=== PATIENT | female | born 1955 | race Caucasian/White ===

== ENCOUNTER 2023-01-17 11:51 | Outpatient (CLI) | payer MEDICARE, BC, SELFPAY | END 2023-01-17 11:52 | disposition home or self-care (01) | LOC: NFLDREF 01-20 09:40 | PROVIDERS: PCP Family Medicine; Referring Provider Family Medicine; Visit Provider Nurse Practitioner Family | DX: R35.0 Frequency of micturition (principal); N30.90 Cystitis, unspecified without hematuria | CPT/HCPCS: 87086; 87186 ==

== ENCOUNTER 2023-04-17 07:56 | Outpatient (CLI) | payer MEDICARE, BC, SELFPAY | END 2023-04-17 07:57 | disposition home or self-care (01) | LOC: NFLDREF 04-26 08:14 | PROVIDERS: PCP Physician Assistant Medical; Visit Provider Physician Assistant Medical | DX: R30.0 Dysuria (principal); N39.0 Urinary tract infection, site not specified; B37.2 Candidiasis of skin and nail; N30.01 Acute cystitis with hematuria | CPT/HCPCS: 87086; 87186 ==

== ENCOUNTER 2023-10-31 13:25 | Outpatient (CLI) | payer MEDICARE, BC, SELFPAY | END 2023-10-31 13:26 | disposition home or self-care (01) | PROVIDERS: PCP Physician Assistant Medical; Visit Provider Emergency Medicine | DX: Z00.00 Encounter for general adult medical examination without abnormal findings (principal); E55.9 Vitamin D deficiency, unspecified; E78.5 Hyperlipidemia, unspecified; Z13.1 Encounter for screening for diabetes mellitus; G25.81 Restless legs syndrome; E61.1 Iron deficiency | CPT/HCPCS: 80053; 80061; 82652; 82728 ==

== ENCOUNTER 2023-11-20 15:11 | Outpatient (CLI) | payer MEDICARE, BC, SELFPAY ==
--- NOTE | 2023-11-20 15:00 | XR_ITS ---
Patient: EDWINA LEYVA Facility:?[facility] Patient ID:?[id number] Site Patient ID:?[id number]. Site :?[id number] Study:?DEXA-Bone Density -11/20/2023 3:56:11 PM Ordering Physician:KRISTI Final Report: DXA BONE MINERAL DENSITY STUDY Reason for exam: Asymptomatic menopausal state. Current height (in): 62. Weight (lb): 160. Menopause age: 56. Ethnicity: White. 1. Have you had a previous hip or vertebral fracture? No. 2. Have you had any fractures during your adult life which did not result from significant trauma (e.g., auto accident)? Yes. 3. Did either of your parents have a hip fracture? No. 4. Do you smoke? No. 5. Have you ever taken Glucocorticoids? No. 6. Do you have rheumatoid arthritis? No. 7. Do you have secondary osteoporosis? No. 8. Do you drink 3 or more alcoholic drinks per day? No. 9. Are you being treated for osteoporosis? Yes. 10. Have you ever taken any of the following medications: Actonel, Evista, Fosamax, Miacalcin, Reclast, Boniva, Forteo, HRT (i.e., estrogen/hormone therapy), Protelos, Prolia, Vitamin D, Calcium, other ? please specify. ANSWER: Yes, vitamin D, calcium, and Meloxicam. 11. Do you have any of the following medical conditions: Anorexia or bulimia, asthma or emphysema, end stage renal disease, hyperparathyroidism, any seizure disorders, cancer, inflammatory bowel diseases, hysterectomy, other ? please specify. ANSWER: No. 12. What was your maximum height (inches)? 65. 13. Do you perform weight bearing exercise regularly? No. 14. Do you regularly consume dairy products? Yes. 15. Do you drink caffeinated beverages? Yes. 16. At what age did your period start? 14. 17. Are you premenopausal? No. 18. How many full-term pregnancies have you had? 3. 19. Have you ever missed your period for more than 6 months in a row (not including or menopause)? No. TECHNIQUE: Bone mineral density study was performed using the [employer]. FINDINGS: The results of the study expressed as bone mineral density (BMD) are as follows: Lumbar spine L1 to L4: BMD: 0.869 g/cm2. T-score: -1.6. Z-score: 0.5 Neck Left: BMD: 0.632 g/cm2. T-score: -2.0. Z-score: -0.1 Right: BMD: 0.612 g/cm2. T-score: -2.1. Z-score: -0.3 Total Left: BMD: 0.818 g/cm2. T-score: -1.0. Z-score: 0.5 Right: BMD: 0.792 g/cm2. T-score: -1.2. Z-score: 0.3 IMPRESSION: Osteopenia. CHINTAN MARROQUIN M.D. JEFFREY:kimberly D& Transcribed: 12:38 p.m. [email or web address]/Dictated by: Chintan Marroquin MD @ 11/21/2023 11:19:00 AM Signed by:Isabel Marroquin MD @11/21/2023 4:15:48 PM (Electronic Signature)
== END 2023-11-20 15:12 | disposition home or self-care (01) ==
LOC: RAD 15:13
PROVIDERS: PCP Physician Assistant Medical; Visit Provider Emergency Medicine
DX: Z78.0 Asymptomatic menopausal state (principal); M85.88 Other specified disorders of bone density and structure, other site; M85.80 Other specified disorders of bone density and structure, unspecified site
CPT/HCPCS: 77080

== ENCOUNTER 2023-12-10 09:15 | Outpatient (CLI) | payer MEDICARE, BC, SELFPAY | END 2023-12-10 09:16 | disposition home or self-care (01) | PROVIDERS: PCP Emergency Medicine; Visit Provider Physician Assistant Medical | DX: M79.671 Pain in right foot (principal); M79.672 Pain in left foot | CPT/HCPCS: 86200; 86431 ==

== ENCOUNTER 2024-06-17 08:26 | Outpatient (CLI) | payer MEDICARE, BC, SELFPAY | END 2024-06-17 08:27 | disposition home or self-care (01) | PROVIDERS: PCP Emergency Medicine; Visit Provider Emergency Medicine | DX: R20.2 Paresthesia of skin (principal); N39.41 Urge incontinence; E78.5 Hyperlipidemia, unspecified | CPT/HCPCS: 82607; 84443; 87086 ==

== ENCOUNTER 2024-10-30 10:36 | Outpatient (CLI) | payer MEDICARE, BC, SELFPAY | END 2024-10-30 10:37 | disposition home or self-care (01) | LOC: NFLDREF 10-31 06:11 | PROVIDERS: PCP Emergency Medicine; Referring Provider Emergency Medicine; Visit Provider Emergency Medicine | DX: I10 Essential (primary) hypertension (principal); M85.80 Other specified disorders of bone density and structure, unspecified site; R20.2 Paresthesia of skin; E78.2 Mixed hyperlipidemia; Z13.21 Encounter for screening for nutritional disorder | CPT/HCPCS: 80048; 80061; 82306; 82607 ==

== ENCOUNTER 2024-11-17 08:00 | Outpatient (RCR) | payer MEDICARE, BC, SELFPAY | END 2024-12-23 09:26 | disposition home or self-care (01) | PROVIDERS: PCP Emergency Medicine; Visit Provider Emergency Medicine | DX: M25.812 Other specified joint disorders, left shoulder (principal); Z51.89 Encounter for other specified aftercare | CPT/HCPCS: 97110; 97140; 97162 ==

== ENCOUNTER 2024-11-24 08:50 | Outpatient (CLI) | payer MEDICARE, BC, SELFPAY ==
--- NOTE | 2024-11-24 10:14 | P.ANES_ITS ---
Anesthesia Charges Start Date/Time Anesthesia Start Date: 11/24/24 Anesthesia Start Time: 09:31 Stop Date/Time Anesthesia Stop Date: 11/24/24 Anesthesia Stop Time: 10:13 Summary Extremes of Age - Over 70 or under 1: BEE RANCHER Coding CPT Codes CPT Codes: JAYDEN LWR INTST NDSC NOS - 75897 ([id number]) P2 - PATIENT W/MILD SYST DISEASE, QK - PET HANDLER 2-4 CNCRNT ANES PROC, QX - BEE RANCHER SVC W/ MD MED DIRECTION Additional Codes: Summary - Extremes of Age - Over 70 or under 1: BEE RANCHER ([id number])
--- NOTE | 2024-11-24 10:14 | W.ANESCHARGE ---
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
--- NOTE | 2024-11-24 11:30 | P.ANES_ITS ---
Anesthesia Charges Start Date/Time Anesthesia Start Date: 11/24/24 Anesthesia Start Time: 09:31 Stop Date/Time Anesthesia Stop Date: 11/24/24 Anesthesia Stop Time: 10:13 Summary Extremes of Age - Over 70 or under 1: MDA Coding CPT Codes CPT Codes: ANES LWR INTST NDSC NOS - 32023 ([id number]) QK - DEVELOPER EVANGELIST 2-4 CNCRNT ANES PROC, QX - SEARCH PLANNER SVC W/ MD MED DIRECTION, P2 - PATIENT W/MILD SYST DISEASE Additional Codes: Summary - Extremes of Age - Over 70 or under 1: MDA ([id number])
== END 2024-11-24 08:51 | disposition home or self-care (01) ==
LOC: OP CLINIC 08:51
PROVIDERS: PCP Emergency Medicine; Visit Provider Surgery
DX: Z12.11 Encounter for screening for malignant neoplasm of colon (principal); D12.2 Benign neoplasm of ascending colon
CPT/HCPCS: 00811; 45385; 88305; 99100; J2704

== ENCOUNTER 2025-01-21 07:39 | Emergency (ER) | payer MEDICARE, BC, SELFPAY ==
--- OUTSIDE RECORDS SUMMARY | 2011-11-22 05:00 | XMS_ITS | Continuity of Care Document ---
Author Organization [facility] Address [address] [address] [place] [address] Phone Care Team Providers Care Communication Equipment Repairer Name Role Phone Azael Zamora MD Unavailable Unavailable Procedures Procedure Date Colonoscopy Flex; Dx (apr) 12 Advance Directives Directive Yes / No Effective Date File Name No Information Encounters Encounter Description Practice Location Reason(s) For Visit Diagnoses Date Provider Providers Copied on Encounter [facility], [address] [address], [place], [place], [id number], tel:[phone] [facility] No Information 2 Noah Addison. [address] [facility] [address], [place], [place], [id number] , [place]. tel:[phone] Referring Provider: Melinda Baez MD E, [address] [facility] [address], [place], [address]. tel:[phone] Family History Family Member Type Diagnosis Age At Onset No Information Payers Payer name Insurance type Covered republican ID Juan M harris(s) V[employer] CI [id number] Social History Type Description Quantity Date Captured Comments Sex Female Smoking Status No Information Chief Complaint And Reason For Visit No Information Reason For Referral Reason For Referral No Information History Of Present Illness Encounter Date Complaint History Of Prese nt Illness No Information Functional Status Date Functional Assessmen t No Information Instructions Date Instruction Additional Infor mation No Information Assessments Type Assessment Date No Information Patient Care Teams Name Effective Dates (start - stop) Status Members No Information
[2025-01-21] VITALS (7 sets, daily range): BP systolic 123–186; BP diastolic 57–95; PULSE 50–68; RESP 12–18; TEMP 36.5; O2SAT 93–100; BMI 26.6
--- OUTSIDE RECORDS SUMMARY | 2025-01-21 07:41 | XMS_ITS ---
Author Name Interface, C1Rcdawyy lity Address [address] [facility] [address] [address] [facility] Address [address] [facility] [address] [address] Care Team Providers Care Enrollment Management Vice President Name Role Phone Nataliia Bravo Unavailable Unavailable Allergies and Adverse Reactions Medication/Group Name Reaction Severity Date No known allergies Plan Date Type Value 03/08/2025 APPOINTMENT OV 30 MIN 03/08/2025 APPOINTMENT LAB 15 MIN 03/02/2024 APPOINTMENT OV 30 MIN 01/21/2023 APPOINTMENT OFFICE FU 30 MIN NO TREATMENT 01/14/2023 APPOINTMENT OUTSIDE TEST 5 M IN 01/22/2022 APPOINTMENT LAB 15 MIN 01/22/2022 APPOINTMENT OV 30 MIN 01/15/2022 APPOINTMENT CARE HOME FOLLOW UP 30 MIN 01/15/2022 APPOINTMENT LAB 15 MIN 01/08/2022 APPOINTMENT OUTSIDE TEST 5 M IN 01/09/2021 APPOINTMENT 1YRRC - 70 ARM/1 YRRC - OK PER CYNDI 01/09/2021 APPOINTMENT 1YRRC - 70 ARM/1 YRRC - OK PER CYNDI 01/03/2021 APPOINTMENT MAMMO - 70 MAMMO CHKIN@ 945AM - FEMALE BREAST CANCER 10/20/2020 APPOINTMENT 1YRRC - 70 ARM/1 YRRC - 70 ARM/1YRRC 01/18/2020 APPOINTMENT 1YRRC - 70 ARM 1 YRRC - PUSH OUT 2-3 MO PER 01/18/2020 APPOINTMENT 1YRRC - 70 ARM 1 YRRC - PUSH OUT 2-3 MO PER 01/09/2021 LABORDER CA 27-29 panel 01/09/2021 LABORDER CBC w/ auto diff 01/09/2021 LABORDER CMP 01/17/2021 LABORDER Mammogram, sada jessy, bilateral breast 01/08/2022 LABORDER Mammogram, scree jessy, bilateral breast 01/22/2022 LABORDER CBC w/ auto diff 01/22/2022 LABORDER CMP 01/14/2023 LABORDER Mammogram, scree jessy, bilateral breast 01/31/2025 LABORDER Mammogram, scree jessy, bilateral breast 03/08/2025 LABORDER CMP 03/08/2025 LABORDER CBC w/ auto diff Reason for Visit OV 30 MIN Encounters Date Name 01/18/2020 Primary malignant ne oplasm of female breast (disorder) Immunizations Date Name Route Dose Instructions Refusal Reason Stat us Flu vaccine - Adult Patient declined/rejected Not Administered Flu vaccine - Adult Patient declined/rejected Not Administered Covid-19 vaccine (Moderna) Completed Covid-19 vaccine (Moderna) Completed Covid-19 vaccine (Moderna) Completed Diagnostic Results Date Type Test Units Lower Limit Upper Limit Result Flag Comments Status Ordered By Specimen Source Lab Address 01/17 CMP Album in g/dL 3.2 5.2 4.3 FINAL Blayne Valencia [address] [id number] 0 Phone: () - 01/17 CMP Alkal ine phosp hatas e U/L 46.0 116.0 58 FINAL Blayne Lopez[address] [id number] 0 Phone: () - 01/17 CMP ALT/S GPT U/L 7.0 40.0 21 FINAL Blayne Lopez[address] [id number] 0 Phone: () - 01/17 CMP AST/S GOT U/L 13.0 40.0 27 FINAL Blayne Lopez[address] [id number] 0 Phone: () - 01/17 CMP BUN mg/dL 9.0 23.0 20 [facility] Blayne Valencia [address] [phone] 0 Phone: () - 01/17 CMP Calci um mg/dL 8.7 10.4 10.1 FINAL Blayne Valencia [place] [address] [place] [phone] 0 Phone: () - 01/17 CMP Chlor tiara mmol/L 96.0 114.0 108 FINAL Blayne Valencia [address] [id number] 0 Phone: () - 01/17 CMP CO2 mmol/L 20.0 31.0 29 FINAL Blayne Valencia [address] [id number] 0 Phone: () - 01/17 CMP Creat inine mg/dL 0.5 1.2 0.67 [facility] Blayne Valencia [address] [phone] 0 Phone: () - 01/17 CMP GFR estim ate ml/min /1.73m ^2 91.3 GFR is calculate d using the CKD-EPI equation. FINAL Blayne Valencia [address] [phone] 0 Phone: () - 01/17 CMP Gluco se mg/dL 73.0 126.0 102 [facility] Blayne Valencia [address] [id number] 0 Phone: () - 01/17 CMP Potas sium mmol/L 3.5 5.1 4.2 ROSELINE Valencia [address] [phone] 0 Phone: () - 01/17 CMP Sodiu m mmol/L 136.0 145.0 144 [facility] Blayne Valencia [address] [phone] 0 Phone: () - 01/17 CMP Bilir ubin, total mg/dL 0.3 1.2 0.6 [facility] Blayne Valencia [address] [phone] 0 Phone: () - 01/17 CMP Total prote in g/dL 5.7 8.2 7.0 [facility] Blayne Valencia [address] [phone] 0 Phone: () - 01/17 CBC w/ auto diff WBC K/uL 3.0 8.9 4.6 FINAL Blayne morales [facility] - [place], [address] 200 [facility] [phone] 0 Phone: () - 01/17 CBC w/ auto diff HGB g/dL 11.3 15.2 12.7 FINAL Blayne morales [facility] - [place], [address] 200 [facility] [id number] 0 Phone: () - 01/17 CBC w/ auto diff PLT K/uL 113.0 364.0 222 FINAL Blayne morales Oncology - [place], [address] 200 [facility] [id number] 0 Phone: () - 01/17 CBC w/ auto diff Irwin # (ANC) K/uL 1.6 6.6 2.7 FINAL Blayne morales [facility] - [place], [address] 200 [facility] [phone] 0 Phone: () - 01/17 CBC w/ auto diff Irwin % % 43.0 74.0 58.7 FINAL Blayne morales [facility] - [place], [address] 200 [facility] [id number] 0 Phone: () - 01/17 CBC w/ auto diff IG % % 0.0 0.5 0.4 FINAL Blayne morales [facility] - [place], [address] 200 [facility] [id number] 0 Phone: () - 01/17 CBC w/ auto diff IG # K/uL 0.0 0.03 0.02 FINAL Blayne morales [facility] - [place], [address] [facility] [place] [phone] 0 Phone: () - 01/17 CBC w/ auto diff LY % % 14.0 41.0 25.2 FINAL Blayne morales [facility] - [place], [address] [facility] [id number] 0 Phone: () - 01/17 CBC w/ auto diff MO % % 6.0 15.0 10.9 FINAL Blayne morales [facility] - [place], [address] [place] [address] [address] [place] [id number] 0 Phone: () - 01/17 CBC w/ auto diff EO % % 0.0 7.0 4.1 FINAL Blayne morales [facility] - [place], [address] [place] [address] [address] [place] [id number] 0 Phone: () - 01/17 CBC w/ auto diff BA % % 0.0 2.0 0.7 FINAL Blayne morales [facility] - [place], [address] [place] [address] [address] [place] [id number] 0 Phone: () - 01/17 CBC w/ auto diff LY # K/uL 0.4 3.6 1.2 FINAL Blayne morales [facility] - [place], [address] [place] [address] [address] [place] [id number] 0 Phone: () - 01/17 CBC w/ auto diff MO # K/uL 0.2 1.3 0.5 FINAL Blayne morales [facility] - [place], [address] [place] [address] [address] [place] [id number] 0 Phone: () - 01/17 CBC w/ auto diff EO # K/uL 0.0 0.6 0.2 FINAL Blayne morales [facility] - [place], [address] [place] [address] [address] [place] [id number] 0 Phone: () - 01/17 CBC w/ auto diff BA # K/uL 0.0 0.2 0.0 FINAL Blayne morales [facility] - [place], [address] [place] [address] [address] [place] [id number] 0 Phone: () - 01/17 CBC w/ auto diff NRBC % #/100W BC 0.0 0.2 0.0 FINAL Blayne morales [facility] - [place], [address] [place] [address] [address] [place] [id number] 0 Phone: () - 01/17 CBC w/ auto diff RBC M/uL 3.9 5.1 4.25 FINAL Blayne morales On[facility] - [place], [address] [place] [id number] 0 Phone: () - 01/17 CBC w/ auto diff HCT % 35.0 48.0 38.8 FINAL [facility], [address] [place] [address] [address] [place] [id number] 0 Phone: () - 01/17 CBC w/ auto diff MCV fL 80.0 104.0 91.3 FINAL [facility]ales [facility], [address] [place] [address] 200 [place] [id number] 0 Phone: () - 01/17 CBC w/ auto diff MCH pg 26.0 35.0 29.9 FINAL Blayne morales [facility], [address] [place] [id number] 0 Phone: () - 01/17 CBC w/ auto diff MCHC g/dL 30.0 35.0 32.7 FINAL Blayne morales Oncology [facility], [address] [place] [id number] 0 Phone: () - 01/17 CBC w/ auto diff MPV fL 9.5 13.4 9.6 FINAL Blayne morales Oncology [facility], [address] [place] [id number] 0 Phone: () - 01/17 CBC w/ auto diff RDW % 11.4 16.1 13.20 FINAL Blayne morales Oncology [facility], [address] 200 [place] [id number] 0 Phone: () - 01/17 CA 27-29 panel CA 27-29 UNITS/ ML 0.0 37.0 15.68 Test performed at [facility] on a [employer] 2000 Immunoass ay Analyzer that uses an immunoenz ymometric sandwich assay for analysis. Patient testing should not be performed using multiple methodsuzan lambert due to analytica l variation seen between test methodsuzan lambert. FINAL Blayne morales Oncology [facility], [address] [facility] [address] [facility] [phone] 0 Phone: () - 10/06 [facility] other lab See extermination supervisor d 01/09 CBC w/ auto diff WBC K/uL 3.0 8.9 6.6 FINAL Nataliia morales Oncology - [place], [address] [place] [address] [address] [place] [id number] 0 Phone: () - 01/09 CBC w/ auto diff HGB g/dL 11.3 15.2 12.9 FINAL Nataliia morales Oncology - [place], [address] [place] [address] [address] [place] [id number] 0 Phone: () - 01/09 CBC w/ auto diff PLT K/uL 113.0 364.0 251 FINAL Nataliia morales [facility] - [place], [address] [place] [address] [address] [place] [id number] 0 Phone: () - 01/09 CBC w/ auto diff Irwin # (ANC) K/uL 1.6 6.6 4.9 FINAL Nataliia morales [facility] - [place], [address] [place] [address] [address] [place] [id number] 0 Phone: () - 01/09 CBC w/ auto diff Irwin % % 43.0 74.0 73.2 FINAL Nataliia morales Oncology - [place], [address] [place] [address] [address] [place] [id number] 0 Phone: () - 01/09 CBC w/ auto diff IG % % 0.0 0.5 0.2 FINAL Nataliia morales [facility] - [place], [address] [place] [address] [address] [place] [id number] 0 Phone: () - 01/09 CBC w/ auto diff IG # K/uL 0.0 0.03 0.01 FINAL Nataliia Hawleyot andrew Oncology - [place], [address] [place] [address] [address] [place] [id number] 0 Phone: () - 01/09 CBC w/ auto diff LY % % 14.0 41.0 15.1 FINAL Nataliia Hawleyot andrew On[facility] - [place], [address] [place] [address] [address] [place] [id number] 0 Phone: () - 01/09 CBC w/ auto diff MO % % 6.0 15.0 8.8 FINAL Nataliia morales [facility]cology - [place], [address] [place] [address] [address] [place] [id number] 0 Phone: () - 01/09 CBC w/ auto diff EO % % 0.0 7.0 2.1 FINAL Nataliia morales [facility] - [place], [address] [place] [id number] 0 Phone: () - 01/09 CBC w/ auto diff BA % % 0.0 2.0 0.6 FINAL Nataliia morales [facility] - [place], [address] [place] [id number] 0 Phone: () - 01/09 CBC w/ auto diff LY # K/uL 0.4 3.6 1.0 FINAL Nataliia morales Oncology - [place], [address] [place] [id number] 0 Phone: () - 01/09 CBC w/ auto diff MO # K/uL 0.2 1.3 0.6 FINAL Nataliia morales On[facility] - [place], [address] [place] [id number] 0 Phone: () - 01/09 CBC w/ auto diff EO # K/uL 0.0 0.6 0.1 FINAL Nataliia morales Oncology - [place], [address] [place] [id number] 0 Phone: () - 01/09 CBC w/ auto diff BA # K/uL 0.0 0.2 0.0 FINAL Nataliia morales Oncology - [place], [address] [place] [id number] 0 Phone: () - 01/09 CBC w/ auto diff NRBC % #/100W BC 0.0 0.2 0.0 FINAL Nataliia morales Oncology - [place], [address] [place] [id number] 0 Phone: () - 01/09 CBC w/ auto diff RBC M/uL 3.9 5.1 4.31 FINAL Nataliia morales Oncology - [place], [address] [facility] [place] [id number] 0 Phone: () - 01/09 CBC w/ auto diff HCT % 35.0 48.0 39.3 FINAL Nataliia morales Oncology - [place], [address] 200 [facility] [place] [id number] 0 Phone: () - 01/09 CBC w/ auto diff MCV fL 80.0 104.0 91.2 FINAL Nataliia morales Oncology - [place], [address] [facility] [place] [id number] 0 Phone: () - 01/09 CBC w/ auto diff MCH pg 26.0 35.0 29.9 FINAL Nataliia morales Oncology - [place], [address] [facility] [place] [id number] 0 Phone: () - 01/09 CBC w/ auto diff MCHC g/dL 30.0 35.0 32.8 FINAL Nataliia morales Oncology - [place], [address] [facility] [place] [id number] 0 Phone: () - 01/09 CBC w/ auto diff MPV fL 9.5 13.4 9.9 FINAL Nataliia morales Oncology - [place], [address] [facility] [place] [id number] 0 Phone: () - 01/09 CBC w/ auto diff RDW % 11.4 16.1 13.10 FINAL Nataliia morales [facility] [place] [facility], [address] 200 [facility] [place] [id number] 0 Phone: () - 01/09 CMP Album in g/dL 3.2 5.2 4.4 FINAL Nataliia morales Oncology [address] [phone] 0 Phone: () - 01/09 CMP Alkal ine phosp hatas e U/L 46.0 116.0 71 FINAL Nataliia morales On[facility] [address] [place] [phone] 0 Phone: () - 01/09 CMP ALT/S GPT U/L 7.0 40.0 23 FINAL Nataliia morales [address] [id number] 0 Phone: () - 01/09 CMP AST/S GOT U/L 13.0 40.0 32 FINAL Nataliia morales [address] [id number] 0 Phone: () - 01/09 CMP BUN mg/dL 9.0 23.0 14 FINAL Nataliia Hawley[address] [id number] 0 Phone: () - 01/09 CMP Calci um mg/dL 8.7 10.4 9.7 FINAL Nataliia Hawley[address] [id number] 0 Phone: () - 01/09 CMP Chlor tiara mmol/L 96.0 114.0 109 FINAL Nataliia Hawley[address] [id number] 0 Phone: () - 01/09 CMP CO2 mmol/L 20.0 31.0 26 FINAL Nataliia Bravo [address] [id number] 0 Phone: () - 01/09 CMP Creat inine mg/dL 0.5 1.2 0.89 FINAL Nataliia Hawley andrew [address] [id number] 0 Phone: () - 01/09 CMP GFR estim ate ml/min /1.73m ^2 66.8 GFR is calculate d using the CKD-EPI equation. FINAL Nataliia Hawley andrew [address] [phone] 0 Phone: () - 01/09 CMP Gluco se mg/dL 73.0 126.0 87 FINAL Nataliia morales [address] [id number] 0 Phone: () - 01/09 CMP Potas sium mmol/L 3.5 5.1 4.1 FINAL Nataliia Hawley[address] [id number] 0 Phone: () - 01/09 CMP Sodiu m mmol/L 136.0 145.0 143 FINAL Nataliia Hawley andrew [address] [id number] 0 Phone: () - 01/09 CMP Bilir ubin, total mg/dL 0.3 1.2 0.5 FINAL Nataliia Hawley[address] [id number] 0 Phone: () - 01/09 CMP Total prote in g/dL 5.7 8.2 7.3 FINAL Nataliia Hawley[address] [phone] 0 Phone: () - 01/09 CA 27-29 panel CA 27-29 UNITS/ ML 0.0 37.0 18.95 Test performed at [facility] on a [employer] Immuno[employer] ay Analyzer that uses an immunoenz ymometric sandwich assay for analysis. Patient testing should not be performed using multiple methodolo gikimberly due to analytica l variation seen between test methodolo fausto. FINAL Nataliia Hawley[address] [phone] 0 Phone: () - 07/19 [facility] other lab See extermination supervisor d 08/14 [facility] other lab See extermination supervisor d 01/22 CMP Album in g/dL 3.2 5.2 4.2 FINAL [place] [address] [id number] 0 Phone: () - 01/22 CMP Alkal ine phosp hatas e U/L 46.0 116.0 68 FINAL Blayne Valencia [place] [address] [id number] 0 Phone: () - 01/22 CMP ALT/S GPT U/L 7.0 40.0 25 FINAL Blayne Valencia [place] [address] [id number] 0 Phone: () - 01/22 CMP AST/S GOT U/L 13.0 40.0 31 [facility] [address] [facility] [id number] 0 Phone: () - 01/22 CMP BUN mg/dL 9.0 23.0 18 [facility] [address] [facility] [id number] 0 Phone: () - 01/22 CMP Calci um mg/dL 8.7 10.4 9.6 [facility] [address] [facility] [id number] 0 Phone: () - 01/22 CMP Chlor tiara mmol/L 96.0 114.0 110 [facility] [address] [id number] 0 Phone: () - 01/22 CMP CO2 mmol/L 20.0 31.0 23 The expected total allowable error for CO2 is 5.6%. We have seen up to 10% differenc e in values if reported at the end of the 96 hour stability window. Please consider the clinical significa nce of a 2.0-2.5 mmol/L lower reported CO2 value if reported at the end of the 96 hour stability window. [facility], [address] [facility] [address] [place] [address] [phone] 0 Phone: () - 01/22 CMP Creat inine mg/dL 0.5 1.2 0.76 [facility], [address] [place] [address] [id number] 0 Phone: () - 01/22 CMP GFR estim ate ml/min /1.73m ^2 85.0 GFR is calculate d using the CKD-EPI equation. [facility], [address] [place] [address] [phone] 0 Phone: () - 01/22 CMP Gluco se mg/dL 73.0 126.0 95 FINAL Blayne morales [facility], [address] [facility] [id number] 0 Phone: () - 01/22 CMP Potas sium mmol/L 3.5 5.1 3.9 FINAL Blayne morales [facility], [address] [facility] [id number] 0 Phone: () - 01/22 CMP Sodiu m mmol/L 136.0 145.0 144 FINAL Blayne [facility], [address] [facility] [id number] 0 Phone: () - 01/22 CMP Bilir ubin, total mg/dL 0.3 1.2 0.7 FINAL Blayne morales [facility], [address] [facility] [id number] 0 Phone: () - 01/22 CMP Total prote in g/dL 5.7 8.2 7.0 FINAL Blayne morales [facility], [address] [facility] [id number] 0 Phone: () - 01/22 CBC w/ auto diff WBC K/uL 3.0 8.9 4.2 FINAL Blayne morales [facility], [address] [place] [address] 200 [facility] [place] [id number] 0 Phone: () - 01/22 CBC w/ auto diff HGB g/dL 11.3 15.2 12.4 FINAL Blayne morales [facility], [address] [place] [address] [address] [facility] [place] [id number] 0 Phone: () - 01/22 CBC w/ auto diff PLT K/uL 113.0 364.0 252 FINAL Blayne Hawley andrew [facility], [address] [place] [address] [address] [facility] [place] [id number] 0 Phone: () - 01/22 CBC w/ auto diff Irwin # (ANC) K/uL 1.6 6.6 2.1 FINAL Blayne morales Oncology [facility], [address] [place] [address] [address] [facility] [place] [id number] 0 Phone: () - 01/22 CBC w/ auto diff Irwin % % 43.0 74.0 51.5 FINAL Blayne morales [facility] - [place], [address] [place] [address] [address] [place] [id number] 0 Phone: () - 01/22 CBC w/ auto diff IG % % 0.0 0.5 0.2 FINAL Blayne morales [facility] - [place], [address] [place] [address] [address] [place] [id number] 0 Phone: () - 01/22 CBC w/ auto diff IG # K/uL 0.0 0.03 0.01 FINAL Blayne morales [facility] - [place], [address] [place] [address] [address] [place] [id number] 0 Phone: () - 01/22 CBC w/ auto diff LY % % 14.0 41.0 29.3 FINAL Blayne morales [facility] - [place], [address] [place] [address] [address] [place] [id number] 0 Phone: () - 01/22 CBC w/ auto diff MO % % 6.0 15.0 10.8 FINAL Blayne morales [facility] - [place], [address] [place] [address] [address] [place] [id number] 0 Phone: () - 01/22 CBC w/ auto diff EO % % 0.0 7.0 7.2 High FINAL Blayne morales [facility] - [place], [address] [place] [address] [address] [place] [id number] 0 Phone: () - 01/22 CBC w/ auto diff BA % % 0.0 2.0 1.0 FINAL Blayne morales [facility] - [place], [address] [place] [address] [address] [place] [id number] 0 Phone: () - 01/22 CBC w/ auto diff LY # K/uL 0.4 3.6 1.2 FINAL Blayne morales [facility] - [place], [address] [place] [address] [address] [place] [id number] 0 Phone: () - 01/22 CBC w/ auto diff MO # K/uL 0.2 1.3 0.5 FINAL Blayne morales [facility] - [place], [address] [place] [address] [address] [place] [id number] 0 Phone: () - 01/22 CBC w/ auto diff EO # K/uL 0.0 0.6 0.3 FINAL Blayne morales [facility] - [place], [address] [place] [address] [address] [place] [id number] 0 Phone: () - 01/22 CBC w/ auto diff BA # K/uL 0.0 0.2 0.0 FINAL Blayne morales [facility] - [place], [address] [place] [address] [address] [place] [id number] 0 Phone: () - 01/22 CBC w/ auto diff NRBC % #/100W BC 0.0 0.2 0.0 FINAL Blayne morales [facility] - [place], [address] [place] [address] [address] [place] [id number] 0 Phone: () - 01/22 CBC w/ auto diff RBC M/uL 3.9 5.1 4.11 FINAL Blayne morales [facility] - [place], [address] [place] [address] [address] [place] [id number] 0 Phone: () - 01/22 CBC w/ auto diff HCT % 35.0 48.0 38.0 FINAL Blayne morales [facility] - [place], [address] [place] [address] [address] [place] [id number] 0 Phone: () - 01/22 CBC w/ auto diff MCV fL 80.0 104.0 92.5 FINAL Blayne morales [facility] - [place], [address] [place] [address] [address] [place] [id number] 0 Phone: () - 01/22 CBC w/ auto diff MCH pg 26.0 35.0 30.2 FINAL Blayne morales [facility] - [place], [address] [place] [address] [address] [place] [id number] 0 Phone: () - 01/22 CBC w/ auto diff MCHC g/dL 30.0 35.0 32.6 FINAL Blayne morales On[facility] - [place], [address] [facility] [id number] 0 Phone: () - 01/22 CBC w/ auto diff MPV fL 9.5 13.4 9.9 FINAL Blayne morales Oncology [facility], [address] [facility] [id number] 0 Phone: () - 01/22 CBC w/ auto diff RDW % 11.4 16.1 13.50 FINAL Blayne morales Oncology [facility], [address] [facility] [phone] 0 Phone: () - Medications Date Name Route Dose Frequency Instructions Start Date End Date Status Pramipexole Oral once daily at night active Meloxicam Oral once daily active Sulfamethoxazol e-Trimethoprim Oral 800 mg-160 mg (DS) until january 23 active 2018 Miscellaneous Drug PO 1.0 CAPSULE(S) QOD 2018 active 2018 Cetirizine Oral PO 1.0 TABLET(S) prn 2018 active 2018 Miscellaneous Drug Topical 1.0 APPLICATION as directed 2018 active 2018 Ibuprofen Oral PO 1.0 TABLET(S) Q8H PRN pain 2018 active 2018 Triamcinolone Topical Cream 0.1 % Topical 1.0 APPLICATION prn 2018 active 2017 Rosuvastatin Calcium Oral PO 1.0 TABLET(S) every other day takes MWF 2017 active Problems Diagnosis Status Date of Diagnosi s Estrogen receptor negative status [ER-] Active Primary malignant neoplasm of female breast (dis order) Active 09/2011 Vital Signs Date Type Value 01/18/2020 Body Temperature 98.10 01/18/2020 Pain Scale 0.00 01/18/2020 Weight 166.80 01/09/2021 Intravascular Systolic 128 01/09/2021 Intravascular Diastolic 74 01/09/2021 Height 65.00 01/09/2021 Weight 176.20 01/09/2021 Pain Scale 0.00 01/09/2021 Respiratory Rate 16.00 01/09/2021 Oxygen Saturation 98.00 01/09/2021 BSA 1.87 01/09/2021 Body Temperature 97.80 01/09/2021 Heart Beat 90.00 01/09/2021 BMI 29.32 01/22/2022 BMI 26.96 01/22/2022 BSA 1.81 01/22/2022 Height 65.00 01/22/2022 Weight 162.00 01/22/2022 Pain Scale 0.00 01/22/2022 Intravascular Systolic 112 01/22/2022 Intravascular Diastolic 68 01/22/2022 Oxygen Saturation 95.00 01/22/2022 Respiratory Rate 16.00 01/22/2022 Heart Beat 84.00 01/22/2022 Body Temperature 98.00 01/21/2023 Intravascular Systolic 152 01/21/2023 Intravascular Diastolic 66 01/21/2023 Oxygen Saturation 98.00 01/21/2023 Respiratory Rate 16.00 01/21/2023 Heart Beat 81.00 01/21/2023 Pain Scale 2.00 01/21/2023 BSA 1.81 01/21/2023 BMI 27.09 01/21/2023 Height 65.00 01/21/2023 Weight 162.80 01/21/2023 Body Temperature 98.00 03/02/2024 BSA 1.81 03/02/2024 BMI 27.06 03/02/2024 Height 65.00 03/02/2024 Weight 162.60 03/02/2024 Pain Scale 3.00 03/02/2024 Intravascular Systolic 140 03/02/2024 Intravascular Diastolic 82 03/02/2024 Oxygen Saturation 95.00 03/02/2024 Respiratory Rate 16.00 03/02/2024 Body Temperature 98.04 03/02/2024 Heart Beat 87.00
--- OUTSIDE RECORDS SUMMARY | 2025-01-21 07:41 | XMS_ITS ---
Author Name Interface, [id number] lity Address [address] [facility] [address] [address] [facility] Address [address] [facility] [address] [address] Care Team Providers Care Deep Submergence Vehicle Operator Name Role Phone Cindy Loco Unavailable Unavailable Allergies and Adverse Reactions Medication/Group Name Reaction Severity Date No known allergies Plan Date Type Value 03/08/2025 APPOINTMENT OV 30 MIN 03/08/2025 APPOINTMENT LAB 15 MIN 03/02/2024 APPOINTMENT OV 30 MIN 01/21/2023 APPOINTMENT OFFICE FU 30 MIN NO TREATMENT 01/14/2023 APPOINTMENT OUTSIDE TEST 5 M IN 01/22/2022 APPOINTMENT LAB 15 MIN 01/22/2022 APPOINTMENT OV 30 MIN 01/22/2022 LABORDER CBC w/ auto diff 01/22/2022 LABORDER CMP 01/14/2023 LABORDER Mammogram, scree jessy, bilateral breast 01/31/2025 LABORDER Mammogram, scree jessy, bilateral breast 03/08/2025 LABORDER CMP 03/08/2025 LABORDER CBC w/ auto diff Reason for Visit OV 30 MIN Encounters Date Name 01/22/2022 Primary malignant ne oplasm of female breast (disorder) Immunizations Date Name Route Dose Instructions Refusal Reason Stat us Flu vaccine - Adult Patient declined/rejected Not Administered Covid-19 vaccine (Moderna) Completed Covid-19 vaccine (Moderna) Completed Covid-19 vaccine (Moderna) Completed Diagnostic Results Date Type Test Units Lower Limit Upper Limit Result Flag Comments Status Ordered By Specimen Source Lab Address 01/22 CMP Album in g/dL 3.2 5.2 4.2 FINAL [facility] [place], [address] [facility] [address] [facility] [id number] [phone] Phone: () - 01/22 CMP Alkal ine phosp hatas e U/L 46.0 116.0 68 [facility], [address] [facility] [phone] 0 Phone: () - 01/22 CMP ALT/S GPT U/L 7.0 40.0 25 FINAL Blayne Valencia [facility], [address] [facility] [phone] Phone: () - 01/22 CMP AST/S GOT U/L 13.0 40.0 31 [facility], [address] [facility] [phone] 0 Phone: () - 01/22 CMP BUN mg/dL 9.0 23.0 18 [facility], [address] [place] [address] [phone] Phone: () - 01/22 CMP Calci um mg/dL 8.7 10.4 9.6 FINAL Blayne Valencia [facility], [address] [place] [address] [phone] Phone: () - 01/22 CMP Chlor tiara mmol/L 96.0 114.0 110 FINAL Blayne Valencia [facility], [address] [place] [address] [phone] Phone: () - 01/22 CMP CO2 [...] the 96 hour stability window. [facility], [address] [facility] [phone] 0 Phone: () - 01/22 CMP Creat inine mg/dL 0.5 1.2 0.76 FINAL Blayne Valencia [facility], [address] [phone] 0 Phone: () - 01/22 CMP GFR estim ate ml/min /1.73m ^2 85.0 GFR is calculate d using the CKD-EPI equation. [facility], [address] [phone] 0 Phone: () - 01/22 CMP Gluco se mg/dL 73.0 126.0 95 [facility], [address] [phone] 0 Phone: () - 01/22 CMP Potas sium mmol/L 3.5 5.1 3.9 [facility], [address] [phone] 0 Phone: () - 01/22 CMP Sodiu m mmol/L 136.0 145.0 144 [facility], [address] [phone] 0 Phone: () - 01/22 CMP Bilir ubin, total mg/dL 0.3 1.2 0.7 [facility], [address] [phone] 0 Phone: () - 01/22 CMP Total prote in g/dL 5.7 8.2 7.0 [facility], [address] [phone] 0 Phone: () - 01/22 CBC w/ auto diff WBC K/uL 3.0 8.9 4.2 [facility] [address] [place] [address] [facility] [phone] 0 Phone: () - 01/22 CBC w/ auto diff HGB g/dL 11.3 15.2 12.4 FINAL Blayne Hawley [facility], [address] [facility] [phone] 0 Phone: () - 01/22 CBC w/ auto diff PLT K/uL 113.0 364.0 252 FINAL [facility] [place], [address] [place] [address] [address] [place] [phone] 0 Phone: () - 01/22 CBC w/ auto diff Irwin # (ANC) K/uL 1.6 6.6 2.1 FINAL [facility] [place], [address] [place] [address] [address] [place] [id number] 0 Phone: () - 01/22 CBC w/ auto diff Irwin % % 43.0 74.0 51.5 FINAL [facility] [place], [address] [place] [address] [address] [place] [id number] 0 Phone: () - 01/22 CBC w/ auto diff IG % % 0.0 0.5 0.2 FINAL [facility] [place], [address] [place] [address] [address] [place] [phone] 0 Phone: () - 01/22 CBC w/ auto diff IG # K/uL 0.0 0.03 0.01 FINAL [facility] [place], [address] [place] [address] [address] [place] [id number] 0 Phone: () - 01/22 CBC w/ auto diff LY % % 14.0 41.0 29.3 FINAL [facility] [place], [address] [place] [address] [address] [place] [phone] 0 Phone: () - 01/22 CBC w/ auto diff MO % % 6.0 15.0 10.8 FINAL [facility] [place], [address] [place] [address] [address] [place] [phone] 0 Phone: () - 01/22 CBC w/ auto diff EO % % 0.0 7.0 7.2 High FINAL [facility] [place], [address] [place] [address] [address] [place] [id number] 0 Phone: () - 01/22 CBC w/ auto diff BA % % 0.0 2.0 1.0 FINAL [facility] [place], [address] [place] [phone] 0 Phone: () - 01/22 CBC w/ auto diff LY # K/uL 0.4 3.6 1.2 FINAL [facility] [place], [address] [place] [phone] 0 Phone: () - 01/22 CBC w/ auto diff MO # K/uL 0.2 1.3 0.5 FINAL [facility] [place], [address] [place] [phone] 0 Phone: () - 01/22 CBC w/ auto diff EO # K/uL 0.0 0.6 0.3 FINAL [facility] [place], [address] [place] [phone] 0 Phone: () - 01/22 CBC w/ auto diff BA # K/uL 0.0 0.2 0.0 FINAL [facility] [place], [address] [place] [id number] 0 Phone: () - 01/22 CBC w/ auto diff NRBC % #/100W BC 0.0 0.2 0.0 FINAL [facility] [place], [address] [place] [phone] 0 Phone: () - 01/22 CBC w/ auto diff RBC M/uL 3.9 5.1 4.11 FINAL [facility] [place], [address] [place] [phone] 0 Phone: () - 01/22 CBC w/ auto diff HCT % 35.0 48.0 38.0 FINAL [facility] [place], [address] [place] [address] 200 [place] [phone] 0 Phone: () - 01/22 CBC w/ auto diff MCV fL 80.0 104.0 92.5 FINAL [facility] [place], [address] [place] [address] [address] [place] [id number] 0 Phone: () - 01/22 CBC w/ auto diff MCH pg 26.0 35.0 30.2 FINAL Blayne Hawley [facility], [address] [place] [address] [address] [place] [phone] 0 Phone: () - 01/22 CBC w/ auto diff MCHC g/dL 30.0 35.0 32.6 [facility]AL [facility], [address] [place] [address] [address] [place] [phone] 0 Phone: () - 01/22 CBC w/ auto diff MPV fL 9.5 13.4 9.9 [facility], [address] [place] [address] [address] [place] [phone] 0 Phone: () - 01/22 CBC w/ auto diff RDW % 11.4 16.1 13.50 [facility], [address] [place] [address] 200 [facility] [place] [phone] 0 Phone: () - Medications Date Name [...] Active 09/2011 Vital Signs Date Type Value 01/22/2022 Body Temperature 98.00 01/22/2022 Heart Beat 84.00 01/22/2022 Respiratory Rate 16.00 01/22/2022 Oxygen Saturation 95.00 01/22/2022 BSA 1.81 01/22/2022 Pain Scale 0.00 01/22/2022 Weight 162.00 01/22/2022 Height 65.00 01/22/2022 BMI 26.96 01/22/2022 Intravascular Systolic 112 01/22/2022 Intravascular Diastolic 68 01/21/2023 Pain Scale 2.00 01/21/2023 Intravascular Systolic 152 01/21/2023 Intravascular Diastolic 66 01/21/2023 Oxygen Saturation 98.00 01/21/2023 Respiratory Rate 16.00 01/21/2023 Heart Beat 81.00 01/21/2023 Body Temperature 98.00 01/21/2023 BSA 1.81 01/21/2023 BMI 27.09 01/21/2023 Weight 162.80 01/21/2023 Height 65.00 03/02/2024 BMI 27.06 03/02/2024 Height 65.00 03/02/2024 Weight 162.60 03/02/2024 Pain Scale 3.00 03/02/2024 BSA 1.81 03/02/2024 Oxygen Saturation 95.00 03/02/2024 Respiratory Rate 16.00 03/02/2024 Heart Beat 87.00 03/02/2024 Body Temperature 98.04 03/02/2024 Intravascular Systolic 140 03/02/2024 Intravascular Diastolic 82
--- OUTSIDE RECORDS SUMMARY | 2025-01-21 07:41 | XMS_ITS | Clinical Summary ---
Author Organization [facility] Address [address] [place] [id number] Care Team Providers Care Coin Purse Assembler Name Role Phone Giuliana Montoya MD Primary Care Provider [phone] Allergies Active Allergy Reactions Criticality Noted Date Comments Penicillins Hives 12/19/2018 Medications rosuvastatin (CRESTOR) 10 MG tablet Take 5 mg by mouth daily Active predniSONE (DELTASONE) 1 MG tablet Take 3 mg by mouth daily. 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 Gender Identity Not on file Sexual Orientation Not on file Last Filed Vital Signs Vital Sign Reading Time Taken Comments Blood Pressure 145/93 12/19/2018 7:56 AM CDT Pulse 65 12/19/2018 6:10 AM CDT Temperature 36.8 C (98.2 F) 12/19/2018 6:10 AM CDT Respiratory Rate 18 12/19/2018 7:56 AM CDT Oxygen Saturation 98% 12/19/2018 7:56 AM CDT Inhaled Oxygen Concentration - - Weight - - Height - - Body Mass Index - - Plan of Treatment Not on file Insurance [place] SUPPLEMENT Care Teams Coin Purse Assembler Relationship Specialty Start Date End Date Giuliana Montoya MD PCP - General Family Practice 12/19/18
--- OUTSIDE RECORDS SUMMARY | 2025-01-21 07:41 | XMS_ITS ---
Author Name Interface, [id number] lity Address [address] [facility] [address] [address] [facility] Address [address] [facility] [address] [address] Care Team Providers Care Account Underwriter Name Role Phone Blayne Valencia Unavailable Unavailable Allergies and Adverse Reactions Medication/Group Name Reaction Severity Date No known allergies Plan Date Type Value 03/08/2025 APPOINTMENT OV 30 MIN 03/08/2025 APPOINTMENT LAB 15 MIN 03/02/2024 APPOINTMENT OV 30 MIN 01/31/2025 LABORDER Mammogram, scree jessy, bilateral breast 03/08/2025 LABORDER CMP 03/08/2025 LABORDER CBC w/ auto diff Reason for Visit OV 30 MIN Encounters Date Name 03/02/2024 Primary malignant ne oplasm of female breast (disorder) Medications Date Name Route Dose Frequency Instructions [...] Active 09/2011 Vital Signs Date Type Value 03/02/2024 Body Temperature 98.04 03/02/2024 Heart Beat 87.00 03/02/2024 Respiratory Rate 16.00 03/02/2024 Oxygen Saturation 95.00 03/02/2024 BSA 1.81 03/02/2024 Pain Scale 3.00 03/02/2024 Weight 162.60 03/02/2024 Height 65.00 03/02/2024 BMI 27.06 03/02/2024 Intravascular Systolic 140 03/02/2024 Intravascular Diastolic 82 Notes Section * Med Onc Follow-up Note Patient Name: EDWINA LEYVA Date Of : 1955 Today's Provider:?Blayne Valencia MD Date of Service:?03/02/2024 Attending Physician:?Blayne Valencia (Hematology/Oncology) Referring Provider: ? HEMATOLOGY/ MEDICAL ONCOLOGY FOLLOW UP VISIT Reason for Visit 68-year-old female with a history of stage IA, triple-negative left breast carcinoma Assessment 1.?Stage IA, triple-negative left breast carcinoma; no evidence of disease recurrence,status post left lumpectomy and left breast radiation therapy.2.?History of rheumatoidarthritis, degenerative arthritis. Continue to follow up with the patient's primary physician and rheumatology. 3.?Family history breast cancer risk patient appropriate for medical genetics and BRCAtesting but has declined,??would again January 2023 4.?Emotional stress: Loss of spouse in the last year 5.?Eczema flare: Follows with PMD and dermatology. ??Uses you??triamcinolone and Eucerin cream 6.?Left foot arch discomfort on ball of foot Plan 1. Continue present care.??2.?? Return oncology in one year with updated bilateral screening mammography prior 3. Discussed concern for callous on toes, recommended OTC Callous management?? 4.?Follow-up PMD/dermatology: Encouraged earlier follow-up in dermatology if and as able. ??Currently has appointment 03/20/2024 [place] [facility] Advanced Care Planning Pain Scale on Today's Visit 3 Pain Plan on Today's Visit No pain plan indicated for today's visit Smoking Status Smoking Tobacco : Never smoker; Smokeless Tobacco : Never used smokeless tobacco; Vaping : Never vaped Depression Screening Tool Status Was screened; Outcome positive: No; Screening Date: 03/02/2024; Screening Tool: MD-PHQ2; Total depression score: 0 History of Present Illness ONCOLOGIC HISTORY: The patient was diagnosed with left breast cancer in August 2011. She presentedwith a 0.35-cm, triple-negative, left breast carcinoma. Following left lumpectomy, she had sentinelnode study. She had left breast radiation therapy. She had been observed since. Interval History Overall doing reasonably well. Notes having a difficult and stressful year. Lost her in the last year. 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 Has children and grandchildren that she helps care for. No new breast issues. Does have flare of eczema: Again encouraged follow-up with PMD and dermatology as able Appetite good,??heme-onc review of systems unremarkable Review of Systems Remaining 14 point comprehensive review of systems within normal limits. NCCN Distress Thermometer and Problem List were collected and documented in the patient chart.?? Remarkable symptoms and concerns were discussed with the patient.?? Any additional follow-up is indicated in the plan. Past Medical and Surgical History Current Medications Medication List Name Date Rosuvastatin Calcium Oral 01/22/2022 Sulfamethoxazole-Trimethoprim Oral 800 m g-160 mg (DS) 01/21/2023 Eucerin intensive repair, top (glycerin/ lanolin/mineral oil) 10/02/2018 Meloxicam Oral 01/22/2022 Triamcinolone Topical Cream 0.1 % 2018 Fish oil, po solid (fish oil/dha/epa) Ibuprofen Oral 10/02/2018 Mirapex (Pramipexole Oral) 01/22/2022 Cetirizine Oral 10/02/2018 Allergies No known medication allergies Family History Social History Vital Signs Blood pressure: 140/82, Regular, Pulse: 87, Temperature: 98.04 F, Respirations: 16, O2 sat: 95%, AtRest, Room Air, Pain Scale: 3, Height: 65 in, Weight: 162.6 lb, BSA: 1.81, BMI: 27.06 kg/m2 Covid-19 vaccine (Moderna) (01/22/2022), Elsewhere; Covid-19 vaccine (Moderna) (01/22/2022), Elsewhere; Covid-19 vaccine (Moderna) (01/22/2022), Elsewhere; Flu vaccine - Adult (01/18/2020), Patient declined/rejected; Flu vaccine - Adult (2022), Patient declined/rejected Performance Status ECOG or Karnofsky ECOG: Not recorded Karnofsky: 100% Normal, no complaints, no evidence of disease. (Date: 07/02/2012) Physical Exam Vitals: Vital stable afebrile no acute distress ECOG performance status equal to 0 HEENT: Clear Lymph: No adenopathy cervical supraclavicular axillary inguinal chains Breast: Bilateral without dominant mass: Updated mammography January 2024 reviewed and negative Chest: Clear to auscultation CV: RRR S1-S2 ABD: Bowel sounds present abdomen soft nontender Skin:??Several areas??macular??pruritic rash per patient.?? Scratched areas??in??antecubital fossa ankle area. ??No areas appear secondarily infected Genetics/Molecular/Biomarkers * Primary malignant neoplasm of female breast (disorder) ( Stage Date: 12/04/2011, Stage IA (Primary,Left breast lower-outer quadrant, T1a, pN0, M0, G3, ER Status: Negative, SD Status: Negative) Date of Dx:09/2011 Extent of Disease: No evidence of disease; Histopathologic Type: Ductal invasive carcinoma; Lymph-Vascular Invasion: Not present; Menopausal Status: Postmenopausal; First record:12/04/2011 Last record:10/02/2018 Other Migrated ICD10: C50.512 ) Additional Labs, Imaging, and Other Studies Lab Results CBC LabResults 01/22/2022 08/14/2021 07/19/2021 01/09/2021 01/18/2020 CBC WBC x 10^3/uL 4.2 6.6 4.6 RBC x 10^6/uL 4.11 4.31 4.25 NRBC % /100 wbc 0.0 0.0 0.0 HGB g/dL 12.4 12.9 12.7 HCT % 38.0 39.3 38.8 MCV fL 92.5 91.2 91.3 MCH pg 30.2 29.9 29.9 MCHC g/dL 32.6 32.8 32.7 RDW % 13.50 13.10 13.20 PLT x 10^3/uL 252 251 222 MPV fL 9.9 9.9 9.6 Irwin % 51.5 73.2 58.7 LY % 29.3 15.1 25.2 MO % 10.8 8.8 10.9 EO % 7.2 (H) 2.1 4.1 BA % 1.0 0.6 0.7 IG % 0.2 0.2 0.4 Irwin # (ANC) x 10^3/uL 2.1 4.9 2.7 LY # x 10^3/uL 1.2 1.0 1.2 MO # x 10^3/uL 0.5 0.6 0.5 EO # x 10^3/uL 0.3 0.1 0.2 BA # x 10^3/uL 0.0 0.0 0.0 IG # x 10^3/uL 0.01 0.01 0.02 Chemistries LabResults 01/22/2022 08/14/2021 07/19/2021 01/09/2021 01/18/2020 Chemistries Glucose mg/dL 95 87 102 BUN mg/dL 18 14 20 Creatinine mg/dL 0.76 0.89 0.67 Sodium mmol/L 144 143 144 Potassium mmol/L 3.9 4.1 4.2 Chloride mmol/L 110 109 108 CO2 mmol/L 23 26 29 Calcium mg/dL 9.6 9.7 10.1 Albumin g/dL 4.2 4.4 4.3 Total protein g/dL 7.0 7.3 7.0 Bilirubin, total mg/dL 0.7 0.5 0.6 Alkaline phosphatase U/L 68 71 58 AST/SGOT U/L 31 32 27 ALT/SGPT U/L 25 23 21 GFR estimate mL/min/1.73m2 85.0 66.8 91.3 Tumor Markers LabResults 01/22/2022 08/14/2021 07/19/2021 01/09/2021 01/18/2020 TumorMarkers CA 27-29 U/mL 18.95 15.68 ? Surveys/Consents/Other Discussions Blayne Valencia MD CC: ? Electronically signed by Blayne Valencia MD 03/02/2024 10:04 CDT
--- OUTSIDE RECORDS SUMMARY | 2025-01-21 07:41 | XMS_ITS | Clinical Summary ---
Author Organization [facility] Address [address] [place] [address] Care Team Providers Care Social Work Lecturer Name Role Phone Clinic, No Pcp Or Primary Care Provider Unavaila ble Allergies Active Allergy Reactions Criticality Noted Date Comments Leflunomide Palpitations 09/29/2018 Oxycodone-Acetaminophen Nausea And Vomiting 03/2012 Penicillins Anxiety 09/15/2007 Palpitations, lightheaded, sizzling feeling in head Medications white petrolatum-mineral oil (EUCERIN) cream Apply topically to affected area(s) once daily if needed. Active Flaxseed Oil oil As directed once daily. 1 Bottle 0 3 Active calcium combo no.2-vit. D3 (CITRACAL + D SLOW REL.) 600 mg calcium- 500 unit Extended-Release tablet Take by mouth. 0 4 Active [place]-3 Fatty Acids (FISH OIL) 500 mg cpDR Take 600 mg by mouth once every other day. 0 5 Active cholecalciferol, Vitamin D3, 5,000 unit tab tablet Take by mouth. Active meloxicam (MOBIC) 7.5 mg tablet Take 7.5 mg by mouth once daily. 2 Active pramipexole (MIRAPEX) 0.5 mg tablet TAKE 1 TABLET BY MOUTH ONCE DAILY AT NIGHT 2 Active triamcinolone 0.025% topical (ARISTOCORT) 0.025 % creamIndications:C hronic eczema Apply topically to affected area(s) two times daily. Apply to eczema flares for 5-10 days 80 g 2 2 Active fluticasone (50 mcg per actuation) nasal solution (FLONASE)Indicatio ns:Chronic rhinitis Inhale 2 Sprays to both nostrils once daily. 18.2 mL 2 2 Active clobetasol 0.05% (TEMOVATE 0.05% OINTMENT) 0.05 % ointmentIndication s:Lichen sclerosus et atrophicus 0.5 fingertip units (FTUs) applied nightly to vulvar area twice weekly 30 g 1 2 Active rosuvastatin (CRESTOR) 5 mg tabletIndications: Hyperlipidemia, unspecified hyperlipidemia type Take 1 Tablet (5 mg) by mouth at bedtime. 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 Assessment & Plan (06/09/2018 8:29 PM HATCH SUPERVISOR): Last rheumatology visit 2014 Breast cancer 08/13/2011 HYPERLIPIDEMIA 09/03/2002 GERD 09/03/2002 LICHEN SIMPLEX CHRONICUS 06/19/2002 ENLARGEMENT, LYMPH NODES 02/20/2000 Encounters Date Type Department Care Team Description 11/25/2024 Lab Requisition [facility] [phone] Stacie Moe MD from Last 3 Months Immunizations Immunization Administration Dates Next Due Pneumococcal Poly,23-Valent (Pneumovax) 01/04/20 Pneumococcal conj 13-Valent (Prevnar 13) 019 Tdap 09/18/2016,02/11/2006 Zoster (Shingrix-RZV, recombinant) 04/26/2022, Zoster (Zostavax-ZVL, live) 09/18/2016 Family History Medical History Relation Name Comments Heart Disease Brother 1 CAD Heart Disease Brother 2 2nd brother di ed CAD Other Father glaucoma and si sters Cancer-breast Maternal Aunt diagnosed age 75 (Mom's twin) Cancer Mother vaginal cancer age 88 Cancer-breast Mother diagnosed age 74 Hyperlipidemia Mother Genetic Other 1 Cataract Mother ~Glaucoma Father ( at a late age) Genetic Other 2 CAD- father-[place] age 49. Cancer-breast Other 3 Mat. cousin Cancer-breast Paternal Aunt diagnosed age 60 Other Sister norepinephrine transporter defect Cancer-ovarian No Family History Relation Name Status Comments Brother 1 Brother 2 Father 1990 Maternal Aunt Mother Alive Other 1 Other 2 Other 3 Paternal Aunt Sister Social History Tobacco Use Types Packs/Day Years Used Date Smoking Tobacco: Never Smokeless Tobacco: Never Tobacco Cessation:Counseling Given: Yes Alcohol Use Standard Drinks/Week Comments No 0 (1 standard drink = 0.6 oz pur e alcohol) Alcoholic Drinks/day: 0 PHQ-2 Answer Date Recorded PHQ-2 TOTAL SCORE 0 07/24/2022 Social Connections Answer Date Recorded Frequency of Communication with Friends and Fami ly 0 04/02/2022 Financial Resource Strain Answer Date R ecorded Difficulty of Paying Living Expenses 3 04/02/2022 Difficulty of Paying Living Expenses Not on file 04/02/2022 Food Insecurity Answer Date Recorded Worried About Running Out of Food in the Last Ye ar 1 04/02/2022 Transportation Needs Answer Date Record ed Lack of Transportation (Medical) 1 04/02/2022 Housing Stability Answer Date Recorded Unable to Pay for Housing in the Last Year 1 04/02/2022 Comments No Sex and Gender Information Value Date Recorded Sex Assigned at Not on file Legal Sex Female 5:27 AM HATCH SUPERVISOR Gender Identity Not on file Sexual Orientation Not on file Obstetrics History Para Term AB IAB SAB Ectopic Multiple Livin g Live Births 3 3 3 0 0 0 0 0 3 Date Outcome GA Total Labor Labor/2nd/3rd Weight Sex Type Anes PTL Kemi A1 A5 Name Clin Term Term Term Last Filed Vital Signs Vital Sign Reading Time Taken Comments Blood Pressure 132/74 07/24/2022 9:54 AM HATCH SUPERVISOR Pulse 82 07/24/2022 8:44 AM HATCH SUPERVISOR Temperature 36.7 C (98 F) 10/20/2018 10:57 AM CDT Respiratory Rate 16 01/04/2020 8:17 AM CDT Oxygen Saturation 99% 07/24/2022 8:44 AM HATCH SUPERVISOR Inhaled Oxygen Concentration - - Weight 73.7 kg (162 lb 6.4 oz) 07/24/2022 8:44 A M HATCH SUPERVISOR Height 161.3 cm (5' 3.5) 07/24/2022 8:44 AM HATCH SUPERVISOR Body Mass Index 28.31 07/24/2022 8:44 AM HATCH SUPERVISOR Plan of Treatment Upcoming Encounters Date Type Department Care Team (Late st Contact Info) Description 01/25/2025 7:40 AM CDT Ancillary Procedure [facility] [address] [place] [address] Health Maintenance Due Date Last Done Comments Hepatitis C screening for age 18-79 1971 BMI (ht and wt on same day) for age 18+ 07/24/2023 07/24/2022, 01/04/2020, 10/20/2018, Additional history exists Medicare Wellness for age 65+ 07/25/2023 07/24/2022, 01/04/2020, 10/20/2018 Depression screening for age 12+ 07/27/2023 07/27/2022, 07/24/2022, 01/05/2020, Additional history exists COVID-19 vaccine series ( season) 2024 04/26/2022, 06/27/2021, 11/02/2020, Additional history exists Fecal testing sDNA-FIT (Cologuard) for age 45-75 07/19/2024 07/19/2021 (Verified in Care Everywhere or Patient Record), 07/19/2021 Mammogram for age 45-75 01/19/2025 01/20/20 24, 01/14/2023, 01/08/2022, Additional history exists Influenza Vaccine (Season Ended) 2025 Tetanus booster 09/18/2026 09/18/2016, 02/11/2006 Lipids for age 45-75 08/31/2027 08/31/2022, 07/24/2022, 05/09/2020, Additional history exists RSV vaccine for adults or (1 - 1-dose 75+ series) 2028 Tdap Completed 09/18/2016, 02/11/2006 DEXA/DXA scan for age 65+ Completed 2018, 08/03/2014, 07/31/2012 Pneumococcal series for age 50+ Completed 01/04/2020, 10/20/2018 Zoster (shingles) series for age 50+ Completed 04/26/2022, 09/18/2021, 09/18/2016 Hepatitis B series for 19+ Aged Out N o longer eligible based on patient's age to complete this topic Procedures Procedure Name Priority Date/Time Associated Diagnosis Comments LAB TRACKING EVENT Routine 11/24/2024 9: 51 AM CDT PATH TISSUE EXAM Routine 11/24/2024 9:51 AM CDT XR MAMMO MARIA EUGENIA BILAT SCREEN Routine 01/20/2024 7:41 AM CDT Visit for screening mammogram LC LIPID PANEL AND CHOL/HDL RATIO Routine 08/31/2022 9:41 AM HATCH SUPERVISOR Hyperlipemia XR DXA BONE DENSITY 2 SITES AXIAL Routine 10/27/2018 10:14 AM CDT Menopause from Last 3 Months or Most Recently Relevant to Health Maintenance Results * LAB TRACKING EVENT (11/24/2024 9:51 AM CDT) Other (Other) Client Collect / Unknown 11/24/2024 9:51 AM CDT 11/25/2024 6:31 AM CDT us Stacie Moe MD LAB BILL ONLY Final Re sult [email or web address] [address] [place] [address], * PATH TISSUE EXAM (11/24/2024 9:51 AM CDT) Case Report Pathology Report Case: [id number] Authorizing Provider: Stacie Moe MD Collected: 11/24/2024 0951 Ordering Location: [facility] Received: 11/25/2024 1435 Pathologist: Jaret Telles MD Specimen: Ascending Colon Biopsy 11/27/2024 11:15 AM CDT [email or web address] Final Diagnosis A) COLON, ASCENDING, POLYPECTOMIES: 1. Sessile serrated adenomas (2) 2. Negative for overt dysplasia 3. Per the colonoscopy report: a. Polyp sizes: 6 mm - 11 mm b. Resection: Complete c. Retrieval: Complete 4. Background colonic mucosa with mild surface intraepithelial lymphocytosis possibly representing lymphocytic colitis (see comment) 11/27/2024 11:15 AM CDT [facility] at 1115 CDT Comment A) There is mild intraepithelial lymphocytosis that is suggestive, but not entirely diagnostic of the lymphocytic colitis form of microscopic colitis. The diagnosis of microscopic colitis would be further supported if there is a history of chronic watery diarrhea. Occasionally prolonged infectious diarrhea that occurs in outbreaks ([place] diarrhea) can show similar histologic changes. Some cases of lymphocytic colitis have been associated with medication use; high likelihood associations include NSAIDs, ASA, lansoprazole, ranitidine, sertraline, ticlopidine, and acarbose, with many other medications having been implicated as well. 11/27/2024 11:15 AM CDT [facility] Clinical Information Screening colonoscopy. 11/27/2024 11:15 AM CDT [facility] Gross Description A) Received in formalin are 5 castaneda mucosal fragments ranging from 3 mm to 10 mm in greatest dimension, which are entirely submitted in one cassette. It is labeled with the patient's name and designated ascending colon, multiple polyps. Carlee Gaytan 11/25/2024 2:38 PM 11/27/2024 11:15 AM CDT [facility] Microscopic Description The final diagnosis is based on microscopic examination of appropriate sections of all specimens. 11/27/2024 11:15 AM CDT [facility] Additional Information Interpreted at [facility] Laboratory - [address] [facility] [address], [place] [address] 11/27/2024 11:15 AM CDT [facility] Other (Ascending Colon Biopsy) 11/24/2024 9:51 AM CDT 11/25/2024 2:35 PM CDT us Stacie Moe MD PATHOLOGY/CYTOLOGY Final Result [facility] [address] [place] [address], [place] * XR MAMMO MARIA EUGENIA BILAT SCREEN (01/20/2024 7:41 AM CDT) Anatomical Region Laterality Modality BREASTS, Breast Left, Breast Right Bilateral Mammography Impressions 01/20/2024 4:47 PM CDT There is no radiographic evidence for malignancy. Recommend annual mammograms. MAMMOGRAM ASSESSMENT: ACR 1 Negative PATIENTS: You will also receive a letter with your examination results in an easy to read format. If you have questions about your results, please contact your referring provider. Narrative 01/20/2024 4:47 PM CDT For Patients: As a result of the Century Cures Act, medical imaging exams and procedure reports are released immediately into your electronic medical record. You may view this report before your referring provider. If you have questions, please contact your health care provider. XR MAMMO MARIA EUGENIA BILAT SCREEN [[id number]] CLINICAL HISTORY: This is an asymptomatic 68 y.o. patient. INDICATION FOR EXAM: Mammogram Screening. TECHNIQUE: CC & MLO views were obtained. This study was evaluated with the assistance of Computer-Aided Detection. Breast Tomosynthesis was used in interpretation. COMPARISON FILM: Yes 01/14/23 [facility] 01/08/22 [facility] FINDINGS: There are scattered areas of fibroglandular density. There are no dominant masses, suspicious micro calcifications or areas of architectural distortion. us Rebekah LOPEZ MAMMO Final Res ult * LC LIPID PANEL AND CHOL/HDL RATIO (08/31/2022 9:41 AM HATCH SUPERVISOR) Cholesterol, Total 168 100 - 199 mg/dL 09/05/2022 1:07 AM [facility] Triglycerides 93 0 - 149 mg/dL 09/05/2022 1:07 AM HATCH SUPERVISOR [facility] HDL Cholesterol 55 >39 mg/dL 3 1:07 AM HATCH SUPERVISOR [facility] VLDL Cholesterol Eric 17 5 - 40 mg/dL 09/05/2022 1:07 AM HATCH SUPERVISOR [facility] LDL Chol Calc ([facility]) 96 0 - 99 mg/dL 09/05/2022 1:07 AM [facility] T. Chol/HDL Ratio 3.1 0.0 - 4.4 ratio 09/05/2022 1:07 AM HATCH SUPERVISOR [facility] ([facility]) Comment: T. Chol/HDL Ratio Men Women 1/2 Avg.Risk 3.4 3.3 Avg.Risk 5.0 4.4 2X Avg.Risk 9.6 7.1 3X Avg.Risk 23.4 11.0 Blood BLOOD SPECIMEN / Unknown Venipuncture / Unknown 08/31/2022 9:41 AM HATCH SUPERVISOR 08/31/2022 9:42 AM HATCH SUPERVISOR Narrative [facility] ([facility]) - 09/05/2022 1:07 AM HATCH SUPERVISOR Performed at: 01 - [facility] [employer] [address] [place] [id number] [employer] Welding Equipment Mechanic: Yohannes Conn MD, Phone: [phone] Giuliana Montoya MD SEND OUTS Final Result [facility] ([facility]) [facility] [place] [address], * (ABNORMAL) XR DXA BONE DENSITY 2 SITES AXIAL [[id number]] (10/27/2018 10:14 AM CDT) Anatomical Region Laterality Modality Spine, HIPS, HIPL, HIPR Other Narrative 10/29/2018 9:00 PM CDT Please see scanned document for results of this study. us Giuliana Montoya MD DEXA Final Result from Last 3 Months or Most Recently Relevant to Health Maintenance Insurance MEDICARE PB ONLY [facility] MEDICARE PART B HB ONLY Advance Directives * Full Code (Latest Code Status on File) Date Activated Date Inactivated Comments 08/24/2011 9:19 AM 08/24/2011 8:44 PM Care Teams Social Work Lecturer Relationship Specialty Start Date End Date Clinic, No Pcp Or . PCP - General 12/21/24
--- OUTSIDE RECORDS SUMMARY | 2025-01-21 07:41 | XMS_ITS | CCD ---
Author Name Interface, [id number] lity Address [address] [facility] [address] [address] [facility] Address [address] [address] Care Team Providers Care Orchard Hand Name Role Phone Blayne Valencia Unavailable Unavailable Allergies and Adverse Reactions Care Plan Reason for Visit Encounters Functional Status Medications Problems Procedures Social History Vital Signs
--- NOTE | 2025-01-21 08:25 | CRLHL7_ITS ---
For Patients: As a result of the Century Cures Act, medical imaging exams and procedure reports are released immediately into your electronic medical record. You may view this report before your referring provider. If you have questions, please contact your health care provider. INDICATION: Pain TECHNIQUE: Single view pelvis with AP and frogleg views of the left hip. COMPARISONS: None available. FINDINGS: Femoral heads are well-seated in the acetabula. There is no displaced fracture, dislocation or acute osseous abnormality. Mild axial loss of joint space and marginal osteophyte formation. The soft tissues are unremarkable. IMPRESSION: Mild degenerative changes of the bilateral hips. No acute osseous abnormality. Dictated by Pedrito Abel MD @ 01/21/2025 9:18:51 AM (Electronically Signed)
[2025-01-21] MEDS: ONDANSETRON 2 MG/ML inj 4 MG IVP (08:42)
[2025-01-21] MEDS: 0.9 % SODIUM CHLORIDE 1000 ml 1,000 ML IV (08:42)
--- OUTSIDE RECORDS SUMMARY | 2025-01-21 08:44 | XMS_ITS | CCD ---
Author Name Interface, [id number] lity Address [address] [facility] [address] [address] Organization [facility] Address [address] [facility] [address] [address] Care Team Providers Care Insole Toe Snipping Machine Operator Name Role Phone Blayne Valencia Unavailable Unavailable Allergies and Adverse Reactions Medication/Group Name Reaction Severity Date No known allergies Care Plan Date Type Value 03/08/2025 APPOINTMENT LAB 15 MIN 03/08/2025 APPOINTMENT OV 30 MIN 03/02/2024 APPOINTMENT OV 30 MIN 01/31/2025 LABORDER Mammogram, scree jessy, bilateral breast 03/08/2025 LABORDER CBC w/ auto diff 03/08/2025 LABORDER CMP Reason for Visit OV 30 MIN Encounters Date Name 03/08/2025 Primary malignant ne oplasm of female breast (disorder) 03/08/2025 Primary malignant ne oplasm of female breast (disorder) 03/08/2025 OV 30 MIN 03/08/2025 LAB 15 MIN Functional Status Date Name Score 07/02/2012 Karnofsky performance status 100 12/04/2011 Karnofsky performance status 100 Medications Date Name Route Dose Frequency Instructions Start Date End Date Status Pramipexole Oral once daily at night active Sulfamethoxazol e-Trimethoprim Oral 800 mg-160 mg (DS) until january 23 active Meloxicam Oral once daily active 2018 Prednisone Oral PO 1.0 TABLET(S) daily 10/02 stopped 2018 Miscellaneous Drug PO 1.0 CAPSULE(S) QOD 2018 active 2018 Miscellaneous Drug Topical 1.0 APPLICATION as directed 2018 active 2018 Omeprazole Oral Delayed Release Capsule PO 1.0 CAPSULE(S), ENTERIC COATED daily PRN 10/02 inactive 2018 Cetirizine Oral PO 1.0 TABLET(S) prn 2018 active 2018 Triamcinolone Topical Cream 0.1 % Topical 1.0 APPLICATION prn 2018 active 2018 Ibuprofen Oral PO 1.0 TABLET(S) Q8H PRN pain 2018 active 2018 Miscellaneous Drug PO 2.0 TABLET(S), SUSTAINED ACTION BID 10/02 inactive 2017 Rosuvastatin Calcium Oral PO 1.0 TABLET(S) every other day takes MWF 2017 active Problems Diagnosis Status Date of Diagnosi s Estrogen receptor negative status [ER-] Active Body mass index (BMI) 27.0-27.9, adult Inactive Body mass index (BMI) 28.0-28.9, adult Inactive Body mass index (BMI) 26.0-26.9, adult Inactive Procedures Date Category Name Instructions Status 03/02/2024 Physician Order RTC MD/MOVIE SHOT CAMERA OPERATOR Ordered 01/31/2025 Physician Order Mammogram, sada jiménez, bilateral breast Ordered 03/08/2025 Physician Order RTC MD Ordered Social History Date Name Value 03/02/2024 Smoking Status Never smoker 03/02/2024 Sex Female Vital Signs Date Type Value 03/02/2024 Height 65.00 03/02/2024 Weight 162.60 03/02/2024 Intravascular Systolic 140 03/02/2024 Intravascular Diastolic 82 03/02/2024 Respiratory Rate 16.00 03/02/2024 Heart Beat 87.00 03/02/2024 Body Temperature 98.04 03/02/2024 Pain Scale 3.00 03/02/2024 Oxygen Saturation 95.00 03/02/2024 BMI 27.06
--- OUTSIDE RECORDS SUMMARY | 2025-01-21 08:44 | XMS_ITS ---
Author Name Interface, [id number] lity Address [address] [facility] [address] [address] [facility] Address [address] [facility] [address] [address] Care Team Providers Care Stem Mounter Name Role Phone Blayne Valencia Unavailable Unavailable [...] and as able. ??Currently has appointment 03/20/2024 [place] [facility] Advanced Care Planning Pain Scale on [...] T1a, pN0, M0, G3, ER Status: Negative, KS Status: Negative) Date of Dx:09/2011 Extent of [...]
--- OUTSIDE RECORDS SUMMARY | 2025-01-21 08:45 | XMS_ITS ---
Author Name Interface, [id number] lity Address [address] [facility] [address] [address] [facility] Address [address] [facility] [address] [address] Care Team Providers Care Strategic Planning Analyst Name Role Phone Nataliia Bravo Unavailable Unavailable [...] 01/22/2022 APPOINTMENT OV 30 MIN 01/15/2022 APPOINTMENT DETENTION FOLLOW UP 30 MIN 01/15/2022 APPOINTMENT LAB [...] g/dL 3.2 5.2 4.3 FINAL Blayne Valencia [address] [id number] 0 Phone: () - 01/17 CMP Alkal ine phosp hatas e U/L 46.0 116.0 58 FINAL Blayne Lopez[address] [id number] 0 Phone: () - 01/17 CMP ALT/S GPT U/L 7.0 40.0 21 FINAL Blayne Lopez[address] [id number] 0 Phone: () - 01/17 CMP AST/S GOT U/L 13.0 40.0 27 FINAL Blayne Lopez[address] [id number] 0 Phone: () - 01/17 CMP BUN mg/dL 9.0 23.0 20 [facility] Blayne Valencia [address] [id number] 0 Phone: () - 01/17 CMP Calci um mg/dL 8.7 10.4 10.1 FINAL Blayne Valencia [place] [address] [place] [phone] 0 Phone: () - 01/17 CMP Chlor tiara mmol/L 96.0 114.0 108 FINAL Blayne Valencia [address] [id number] 0 Phone: () - 01/17 CMP CO2 mmol/L 20.0 31.0 29 FINAL Blayne Valencia [address] [id number] 0 Phone: () - 01/17 CMP Creat inine mg/dL 0.5 1.2 0.67 [facility] Blayne Valencia [address] [id number] 0 Phone: () - 01/17 CMP GFR estim ate ml/min /1.73m ^2 91.3 GFR is calculate d using the CKD-EPI equation. FINAL Blayne Valencia [address] [id number] 0 Phone: () - 01/17 CMP Gluco se mg/dL 73.0 126.0 102 [facility] Blayne Valencia [address] [id number] 0 Phone: () - 01/17 CMP Potas sium mmol/L 3.5 5.1 4.2 ROSELINE Valencia [address] [id number] 0 Phone: () - 01/17 CMP Sodiu m mmol/L 136.0 145.0 144 [facility] Blayne Valencia [address] [id number] 0 Phone: () - 01/17 CMP Bilir ubin, total mg/dL 0.3 1.2 0.6 [facility] Blayne Valencia [address] [id number] 0 Phone: () - 01/17 CMP Total prote in g/dL 5.7 8.2 7.0 [facility] Blayne Valencia [address] [id number] 0 Phone: () - 01/17 CBC w/ auto diff WBC K/uL 3.0 8.9 4.6 FINAL Blayne morales [facility] [place], [address] 200 [facility] [id number] 0 Phone: () - 01/17 CBC w/ auto diff HGB g/dL 11.3 15.2 12.7 FINAL Blayne morales [facility] - [place], [address] 200 [facility] [id number] 0 Phone: () - 01/17 CBC w/ auto diff PLT K/uL 113.0 364.0 222 FINAL Blayne morales [facility] - [place], [address] 200 [facility] [id number] 0 Phone: () - 01/17 CBC w/ auto diff Irwin # (ANC) K/uL 1.6 6.6 2.7 FINAL Blayne morales [facility] - [place], [address] 200 [facility] [id number] 0 Phone: () - 01/17 CBC w/ auto diff Irwin % % 43.0 74.0 58.7 FINAL Blayne morales [facility] - [place], [address] 200 [facility] [id number] 0 Phone: () - 01/17 CBC w/ auto diff IG % % 0.0 0.5 0.4 FINAL Blayne morales [facility] - [place], [address] 200 [facility] [id number] 0 Phone: () - 01/17 CBC w/ auto diff IG # K/uL 0.0 0.03 0.02 FINAL Blayne morales [facility] - [place], [address] [facility] [place] [id number] 0 Phone: () - 01/17 CBC w/ auto diff LY % % 14.0 41.0 25.2 FINAL Blayne morales [facility] - [place], [address] [facility] [id number] 0 Phone: () - 01/17 CBC w/ auto diff MO % % 6.0 15.0 10.9 FINAL Blayne morales [facility] - [place], [address] [place] [address] [address] [place] [id number] 0 Phone: () - 01/17 CBC w/ auto diff EO % % 0.0 7.0 4.1 FINAL Blayne morales [facility] - [place], [address] [place] [address] [address] [place] [id number] 0 Phone: () - 01/17 CBC w/ auto diff BA % % 0.0 2.0 0.7 FINAL Blayne morales [facility] - [place], [address] [place] [address] [address] [place] [id number] 0 Phone: () - 01/17 CBC w/ auto diff LY # K/uL 0.4 3.6 1.2 FINAL Blayne morales [facility] - [place], [address] [place] [address] [address] [place] [id number] 0 Phone: () - 01/17 CBC w/ auto diff MO # K/uL 0.2 1.3 0.5 FINAL Blayne morales [facility] - [place], [address] [place] [address] [address] [place] [id number] 0 Phone: () - 01/17 CBC w/ auto diff EO # K/uL 0.0 0.6 0.2 FINAL Blayne morales [facility] - [place], [address] [place] [address] [address] [place] [id number] 0 Phone: () - 01/17 CBC w/ auto diff BA # K/uL 0.0 0.2 0.0 FINAL Blayne morales [facility] - [place], [address] [place] [address] [address] [place] [id number] 0 Phone: () - 01/17 CBC w/ auto diff NRBC % #/100W BC 0.0 0.2 0.0 FINAL Blayne morales [facility] - [place], [address] [place] [address] [address] [place] [id number] 0 Phone: () - 01/17 CBC w/ auto diff RBC M/uL 3.9 5.1 4.25 FINAL Blayne morales [facility] - [place], [address] [facility] [address] [place] [id number] 0 Phone: () - 01/17 CBC w/ auto diff HCT % 35.0 48.0 38.8 FINAL [facility], [address] [place] [address] 200 [place] [id number] 0 Phone: () - 01/17 CBC w/ auto diff MCV fL 80.0 104.0 91.3 FINAL [facility], [address] [place] [address] 200 [place] [id number] 0 Phone: () - 01/17 CBC w/ auto diff MCH pg 26.0 35.0 29.9 FINAL [facility], [address] [place] [id number] 0 Phone: () - 01/17 CBC w/ auto diff MCHC g/dL 30.0 35.0 32.7 FINAL Blayne morales Oncology [facility], [address] 200 [place] [id number] 0 Phone: () - 01/17 CBC w/ auto diff MPV fL 9.5 13.4 9.6 FINAL Blayne morales Oncology [facility], [address] [place] [id number] 0 Phone: () - 01/17 CBC w/ auto diff RDW % 11.4 16.1 13.20 FINAL Blayne morales Oncology [facility], [address] 200 [place] [id number] 0 Phone: () - 01/17 CA 27-29 panel CA 27-29 UNITS/ ML 0.0 37.0 15.68 Test performed at [facility] on a [employer] 2000 Immun[employer] ay Analyzer that uses an immunoenz ymometric sandwich assay for analysis. Patient testing should not be performed using multiple methodsuzan almbert due to analytica l variation seen between test methodsuzan lambert. FINAL Blayne morales Oncology [facility], [address] [facility] [address] [facility] [id number] 0 Phone: () - 10/06 [facility] other lab See calibration checker d 01/09 CBC w/ auto diff WBC K/uL 3.0 8.9 6.6 FINAL Nataliia morales [facility] - [place], [address] [place] [address] [address] [place] [id number] 0 Phone: () - 01/09 CBC w/ auto diff HGB g/dL 11.3 15.2 12.9 FINAL Nataliia morales [facility] - [place], [address] [place] [address] [address] [place] [id number] 0 Phone: () - 01/09 CBC w/ auto diff PLT K/uL 113.0 364.0 251 FINAL Nataliia morales [facility] - [place], [address] [place] [address] [address] [place] [id number] 0 Phone: () - 01/09 CBC w/ auto diff Irwin # (ANC) K/uL 1.6 6.6 4.9 FINAL Nataliia morales [facility] - [place], [address] [place] [address] [address] [place] [id number] 0 Phone: () - 01/09 CBC w/ auto diff Irwin % % 43.0 74.0 73.2 FINAL Nataliia morales [facility] - [place], [address] [place] [address] [address] [place] [id number] 0 Phone: () - 01/09 CBC w/ auto diff IG % % 0.0 0.5 0.2 FINAL Nataliia morales [facility] - [place], [address] [place] [address] [address] [place] [id number] 0 Phone: () - 01/09 CBC w/ auto diff IG # K/uL 0.0 0.03 0.01 FINAL Nataliia Hawleyot andrew Oncology - [place], [address] [place] [address] [address] [place] [id number] 0 Phone: () - 01/09 CBC w/ auto diff LY % % 14.0 41.0 15.1 FINAL Nataliia Hawleyot andrew [facility] - [place], [address] [place] [address] [address] [place] [id number] 0 Phone: () - 01/09 CBC w/ auto diff MO % % 6.0 15.0 8.8 FINAL Nataliia morales [facility] - [place], [address] [place] [address] [address] [place] [id number] 0 Phone: () - 01/09 CBC w/ auto diff EO % % 0.0 7.0 2.1 FINAL Nataliia morales [facility] - [place], [address] [place] [id number] 0 Phone: () - 01/09 CBC w/ auto diff BA % % 0.0 2.0 0.6 FINAL Nataliia morales [facility] - [place], [address] [place] [id number] 0 Phone: () - 01/09 CBC w/ auto diff LY # K/uL 0.4 3.6 1.0 FINAL Nataliia morales [facility] - [place], [address] [place] [id number] 0 Phone: () - 01/09 CBC w/ auto diff MO # K/uL 0.2 1.3 0.6 FINAL Nataliia morales On[facility] - [place], [address] [place] [id number] 0 Phone: () - 01/09 CBC w/ auto diff EO # K/uL 0.0 0.6 0.1 FINAL Nataliia morales [facility] - [place], [address] [place] [id number] 0 Phone: () - 01/09 CBC w/ auto diff BA # K/uL 0.0 0.2 0.0 FINAL Nataliia morales [facility] - [place], [address] [place] [id number] 0 Phone: () - 01/09 CBC w/ auto diff NRBC % #/100W BC 0.0 0.2 0.0 FINAL Nataliia morales [facility] - [place], [address] [place] [id number] 0 Phone: () - 01/09 CBC w/ auto diff RBC M/uL 3.9 5.1 4.31 FINAL Nataliia morales [facility] - [place], [address] [facility] [place] [id number] 0 Phone: () - 01/09 CBC w/ auto diff HCT % 35.0 48.0 39.3 FINAL Nataliia morales [facility] - [place], [address] [facility] [place] [id number] 0 Phone: () - 01/09 CBC w/ auto diff MCV fL 80.0 104.0 91.2 FINAL Nataliia morales [facility] - [place], [address] [facility] [place] [id number] 0 Phone: () - 01/09 CBC w/ auto diff MCH pg 26.0 35.0 29.9 FINAL Nataliia morales [facility] - [place], [address] [facility] [place] [id number] 0 Phone: () - 01/09 CBC w/ auto diff MCHC g/dL 30.0 35.0 32.8 FINAL Nataliia morales Oncology - [place], [address] [facility] [place] [id number] 0 Phone: () - 01/09 CBC w/ auto diff MPV fL 9.5 13.4 9.9 FINAL Nataliia morales On[facility] - [place], [address] [facility] [place] [id number] 0 Phone: () - 01/09 CBC w/ auto diff RDW % 11.4 16.1 13.10 FINAL Nataliia morales [facility] - [place] [facility], [address] [facility] [place] [id number] 0 Phone: () - 01/09 CMP Album in g/dL 3.2 5.2 4.4 FINAL Nataliia morales Oncology [address] [id number] 0 Phone: () - 01/09 CMP Alkal ine phosp hatas e U/L 46.0 116.0 71 FINAL Nataliia morales Oncology [address] [place] [id number] 0 Phone: () - 01/09 CMP ALT/S GPT U/L 7.0 40.0 23 FINAL Nataliia morales [address] [id number] 0 Phone: () - 01/09 CMP AST/S GOT U/L 13.0 40.0 32 FINAL Nataliia morales [address] [id number] 0 Phone: () - 01/09 CMP BUN mg/dL 9.0 23.0 14 FINAL Nataliia Hawley[address] [id number] 0 Phone: () - 01/09 CMP Calci um mg/dL 8.7 10.4 9.7 FINAL Nataliia Hawley[address] [id number] 0 Phone: () - 01/09 CMP Chlor tiara mmol/L 96.0 114.0 109 FINAL Nataliia Hawley[address] [id number] 0 Phone: () - 01/09 CMP CO2 mmol/L 20.0 31.0 26 FINAL Natlaiia Bravo [address] [id number] 0 Phone: () - 01/09 CMP Creat inine mg/dL 0.5 1.2 0.89 FINAL Nataliia Hawley andrew [address] [id number] 0 Phone: () - 01/09 CMP GFR estim ate ml/min /1.73m ^2 66.8 GFR is calculate d using the CKD-EPI equation. FINAL Nataliia Hawley andrew [address] [id number] 0 Phone: () - 01/09 CMP Gluco se mg/dL 73.0 126.0 87 FINAL Nataliia morales [address] [id number] 0 Phone: () - 01/09 CMP Potas sium mmol/L 3.5 5.1 4.1 FINAL Nataliia Hawley[address] [id number] 0 Phone: () - 01/09 CMP Sodiu m mmol/L 136.0 145.0 143 FINAL Nataliia Hawley andrew [address] [id number] 0 Phone: () - 01/09 CMP Bilir ubin, total mg/dL 0.3 1.2 0.5 FINAL Nataliia Hawley[address] [id number] 0 Phone: () - 01/09 CMP Total prote in g/dL 5.7 8.2 7.3 FINAL Nataliia Hawley[address] [id number] 0 Phone: () - 01/09 CA 27-29 panel CA 27-29 UNITS/ ML 0.0 37.0 18.95 Test performed at [facility] on a [employer] Immuno[employer] ay Analyzer that uses an immunoenz ymometric sandwich assay for analysis. Patient testing should not be performed using multiple methodolo gikimberly due to analytica l variation seen between test methodolo fausto. FINAL Nataliia Hawley[address] [id number] 0 Phone: () - 07/19 [facility] other lab See calibration checker d 08/14 [facility] other lab See calibration checker d 01/22 CMP Album in g/dL 3.2 5.2 4.2 FINAL [place] [address] [id number] 0 Phone: () - 01/22 CMP Alkal ine phosp hatas e U/L 46.0 116.0 68 FINAL Blayne Valencia [place] [address] [id number] 0 Phone: () - 01/22 CMP ALT/S GPT U/L 7.0 40.0 25 FINAL Blayne Valencia [place] [address] [id number] 0 Phone: () - 01/22 CMP AST/S GOT U/L 13.0 40.0 31 [facility], [address] [facility] [address] [facility] [id number] 0 Phone: () - 01/22 CMP BUN mg/dL 9.0 23.0 18 [facility] [address] [facility] [address] [facility] [id number] 0 Phone: () - 01/22 CMP Calci um mg/dL 8.7 10.4 9.6 [facility] [address] [facility] [address] [facility] [id number] 0 Phone: () - 01/22 CMP Chlor tiara mmol/L 96.0 114.0 110 [facility] [address] [id number] 0 Phone: () - 01/22 CMP CO2 [...] the 96 hour stability window. FINAL [facility], [address] [facility] [address] [place] [address] [id number] 0 Phone: () - 01/22 CMP Creat inine mg/dL 0.5 1.2 0.76 FINAL [facility], [address] [facility] [address] [place] [address] [id number] 0 Phone: () - 01/22 CMP GFR estim ate ml/min /1.73m ^2 85.0 GFR is calculate d using the CKD-EPI equation. [facility], [address] [facility] [address] [place] [address] [id number] 0 Phone: () - 01/22 CMP Gluco se mg/dL 73.0 126.0 95 FINAL Blayne morales [facility], [address] [facility] [id number] 0 Phone: () - 01/22 CMP Potas sium mmol/L 3.5 5.1 3.9 FINAL Blayne morales [facility], [address] [facility] [id number] 0 Phone: () - 01/22 CMP Sodiu m mmol/L 136.0 145.0 144 FINAL Blayne Helm [facility], [address] [facility] [id number] 0 Phone: () - 01/22 CMP Bilir ubin, total mg/dL 0.3 1.2 0.7 FINAL Blayne morales [facility], [address] [facility] [id number] 0 Phone: () - 01/22 CMP Total prote in g/dL 5.7 8.2 7.0 FINAL Blayne morales [facility], [address] [facility] [address] [facility] [id number] 0 Phone: () - 01/22 CBC w/ auto diff WBC K/uL 3.0 8.9 4.2 FINAL Blayne morales [facility], [address] [place] [address] 200 [facility] [place] [id number] 0 Phone: () - 01/22 CBC w/ auto diff HGB g/dL 11.3 15.2 12.4 FINAL Blayne morales [facility], [address] [place] [address] [address] [facility] [place] [id number] 0 Phone: () - 01/22 CBC w/ auto diff PLT K/uL 113.0 364.0 252 FINAL Blayne Hawley andrew [facility], [address] [place] [address] [address] [facility] [place] [id number] 0 Phone: () - 01/22 CBC w/ auto diff Irwin # (ANC) K/uL 1.6 6.6 2.1 FINAL Blayne morales Oncology [facility], [address] [place] [address] [address] [facility] [place] [id number] 0 Phone: () - 01/22 CBC w/ auto diff Irwin % % 43.0 74.0 51.5 FINAL Blayne morales [facility] [place], [address] [place] [address] [address] [place] [id number] 0 Phone: () - 01/22 CBC w/ auto diff IG % % 0.0 0.5 0.2 FINAL Blayne morales [facility] - [place], [address] [place] [address] [address] [place] [id number] 0 Phone: () - 01/22 CBC w/ auto diff IG # K/uL 0.0 0.03 0.01 FINAL Blayne morales [facility] - [place], [address] [place] [address] [address] [place] [id number] 0 Phone: () - 01/22 CBC w/ auto diff LY % % 14.0 41.0 29.3 FINAL Blayne morales [facility] - [place], [address] [place] [address] [address] [place] [id number] 0 Phone: () - 01/22 CBC w/ auto diff MO % % 6.0 15.0 10.8 FINAL Blayne morales [facility] - [place], [address] [place] [address] [address] [place] [id number] 0 Phone: () - 01/22 CBC w/ auto diff EO % % 0.0 7.0 7.2 High FINAL Blayne morales [facility] - [place], [address] [place] [address] [address] [place] [id number] 0 Phone: () - 01/22 CBC w/ auto diff BA % % 0.0 2.0 1.0 FINAL Blayne morales [facility] - [place], [address] [place] [address] [address] [place] [id number] 0 Phone: () - 01/22 CBC w/ auto diff LY # K/uL 0.4 3.6 1.2 FINAL Blayne morales [facility] - [place], [address] [place] [address] [address] [place] [id number] 0 Phone: () - 01/22 CBC w/ auto diff MO # K/uL 0.2 1.3 0.5 FINAL Blayne morales [facility] - [place], [address] [place] [address] [address] [place] [id number] 0 Phone: () - 01/22 CBC w/ auto diff EO # K/uL 0.0 0.6 0.3 FINAL Blayne morales [facility] - [place], [address] [place] [address] [address] [place] [id number] 0 Phone: () - 01/22 CBC w/ auto diff BA # K/uL 0.0 0.2 0.0 FINAL Blayne morales [facility] - [place], [address] [place] [address] [address] [place] [id number] 0 Phone: () - 01/22 CBC w/ auto diff NRBC % #/100W BC 0.0 0.2 0.0 FINAL Blayne morales [facility] - [place], [address] [place] [address] [address] [place] [id number] 0 Phone: () - 01/22 CBC w/ auto diff RBC M/uL 3.9 5.1 4.11 FINAL Blayne morales [facility] - [place], [address] [place] [address] [address] [place] [id number] 0 Phone: () - 01/22 CBC w/ auto diff HCT % 35.0 48.0 38.0 FINAL Blayne morales [facility] - [place], [address] [place] [address] [address] [place] [id number] 0 Phone: () - 01/22 CBC w/ auto diff MCV fL 80.0 104.0 92.5 FINAL Blayne morales [facility] - [place], [address] [place] [address] [address] [place] [id number] 0 Phone: () - 01/22 CBC w/ auto diff MCH pg 26.0 35.0 30.2 FINAL Blayne morales [facility] - [place], [address] [place] [address] [address] [place] [id number] 0 Phone: () - 01/22 CBC w/ auto diff MCHC g/dL 30.0 35.0 32.6 FINAL Blayne morales [facility] - [place], [address] [facility] [address] [facility] [id number] 0 Phone: () - 01/22 CBC w/ auto diff MPV fL 9.5 13.4 9.9 FINAL Blayne morales Oncology [facility], [address] [facility] [id number] 0 Phone: () - 01/22 CBC w/ auto diff RDW % 11.4 16.1 13.50 FINAL Blayne morales Oncology [facility], [address] [facility] [id number] 0 Phone: () - Medications Date Name [...]
--- OUTSIDE RECORDS SUMMARY | 2025-01-21 08:45 | XMS_ITS | CCD ---
Author Name Interface, [id number] lity Address [address] [facility] [address] [address] [facility] Oncology Address [address] [facility] [address] [address] Care Team Providers Care Senior Patient Account Representative Name Role Phone Blayne Valencia Unavailable Unavailable Allergies and Adverse Reactions Care Plan Reason for Visit Encounters Functional Status Medications Problems Procedures Social History Vital Signs
--- OUTSIDE RECORDS SUMMARY | 2025-01-21 08:45 | XMS_ITS ---
Author Name Interface, [id number] lity Address [address] [facility] [address] [address] [facility] Address [address] [facility] [address] [address] Care Team Providers Care Agent Contract Clerk Name Role Phone Nataliia Bravo Unavailable Unavailable [...] 01/22/2022 APPOINTMENT OV 30 MIN 01/15/2022 APPOINTMENT RESIDENTIAL FOLLOW UP 30 MIN 01/15/2022 APPOINTMENT LAB [...] g/dL 3.2 5.2 4.3 FINAL Blayne Valencia [address] [id number] [phone] Phone: () - 01/17 CMP Alkal ine phosp hatas e U/L 46.0 116.0 58 FINAL Blayne Lopez[address] [id number] 0 Phone: () - 01/17 CMP ALT/S GPT U/L 7.0 40.0 21 FINAL Blayne Lopez[address] [id number] 0 Phone: () - 01/17 CMP AST/S GOT U/L 13.0 40.0 27 FINAL Blayne Lopez[address] [phone] 0 Phone: () - 01/17 CMP BUN mg/dL 9.0 23.0 20 [facility] Blayne Valencia [address] [id number] 0 Phone: () - 01/17 CMP Calci um mg/dL 8.7 10.4 10.1 FINAL Blayne Valencia [place] [address] [place] [phone] 0 Phone: () - 01/17 CMP Chlor tiara mmol/L 96.0 114.0 108 FINAL Blayne Valencia [address] [id number] 0 Phone: () - 01/17 CMP CO2 mmol/L 20.0 31.0 29 FINAL Blayne Valencia [address] [id number] 0 Phone: () - 01/17 CMP Creat inine mg/dL 0.5 1.2 0.67 [facility] Blayne Valencia [address] [id number] 0 Phone: () - 01/17 CMP GFR estim ate ml/min /1.73m ^2 91.3 GFR is calculate d using the CKD-EPI equation. FINAL Blayne Valencia [address] [id number] 0 Phone: () - 01/17 CMP Gluco se mg/dL 73.0 126.0 102 [facility] Blayne Valencia [address] [id number] 0 Phone: () - 01/17 CMP Potas sium mmol/L 3.5 5.1 4.2 ROSELINE Valencia [address] [id number] 0 Phone: () - 01/17 CMP Sodiu m mmol/L 136.0 145.0 144 [facility] Blayne Valencia [address] [id number] 0 Phone: () - 01/17 CMP Bilir ubin, total mg/dL 0.3 1.2 0.6 [facility] Blayne Valencia [address] [id number] 0 Phone: () - 01/17 CMP Total prote in g/dL 5.7 8.2 7.0 [facility] Blayne Valencia [address] [id number] 0 Phone: () - 01/17 CBC w/ auto diff WBC K/uL 3.0 8.9 4.6 FINAL lBayne morales [facility] [place], [address] 200 [facility] [id number] 0 Phone: () - 01/17 CBC w/ auto diff HGB g/dL 11.3 15.2 12.7 FINAL Blayne morales [facility] - [place], [address] 200 [facility] [id number] 0 Phone: () - 01/17 CBC w/ auto diff PLT K/uL 113.0 364.0 222 FINAL Blayne morales [facility] - [place], [address] 200 [facility] [id number] 0 Phone: () - 01/17 CBC w/ auto diff Irwin # (ANC) K/uL 1.6 6.6 2.7 FINAL Blayne morales [facility] - [place], [address] 200 [facility] [id number] 0 Phone: () - 01/17 CBC w/ auto diff Irwin % % 43.0 74.0 58.7 FINAL Blayne morales [facility] - [place], [address] 200 [facility] [id number] 0 Phone: () - 01/17 CBC w/ auto diff IG % % 0.0 0.5 0.4 FINAL Blayne morales [facility] - [place], [address] 200 [facility] [id number] 0 Phone: () - 01/17 CBC w/ auto diff IG # K/uL 0.0 0.03 0.02 FINAL Blayne morales [facility] - [place], [address] [facility] [place] [id number] 0 Phone: () - 01/17 CBC w/ auto diff LY % % 14.0 41.0 25.2 FINAL Blayne morales [facility] - [place], [address] [facility] [id number] 0 Phone: () - 01/17 CBC w/ auto diff MO % % 6.0 15.0 10.9 FINAL Blayne morales [facility] - [place], [address] [place] [address] [address] [place] [id number] 0 Phone: () - 01/17 CBC w/ auto diff EO % % 0.0 7.0 4.1 FINAL Blayne morales [facility] - [place], [address] [place] [address] [address] [place] [id number] 0 Phone: () - 01/17 CBC w/ auto diff BA % % 0.0 2.0 0.7 FINAL Blayne morales [facility] - [place], [address] [place] [address] [address] [place] [id number] 0 Phone: () - 01/17 CBC w/ auto diff LY # K/uL 0.4 3.6 1.2 FINAL Blayne morales [facility] - [place], [address] [place] [address] [address] [place] [id number] 0 Phone: () - 01/17 CBC w/ auto diff MO # K/uL 0.2 1.3 0.5 FINAL Blayne morales [facility] - [place], [address] [place] [address] [address] [place] [id number] 0 Phone: () - 01/17 CBC w/ auto diff EO # K/uL 0.0 0.6 0.2 FINAL Blayne morales [facility] - [place], [address] [place] [address] [address] [place] [id number] 0 Phone: () - 01/17 CBC w/ auto diff BA # K/uL 0.0 0.2 0.0 FINAL Blayne morales [facility] - [place], [address] [place] [address] [address] [place] [id number] 0 Phone: () - 01/17 CBC w/ auto diff NRBC % #/100W BC 0.0 0.2 0.0 FINAL Blayne morales [facility] - [place], [address] [place] [address] [address] [place] [id number] 0 Phone: () - 01/17 CBC w/ auto diff RBC M/uL 3.9 5.1 4.25 FINAL Blayne morales [facility] - [place], [address] [facility] [address] [place] [id number] 0 Phone: () - 01/17 CBC w/ auto diff HCT % 35.0 48.0 38.8 FINAL [facility], [address] [place] [address] 200 [place] [id number] 0 Phone: () - 01/17 CBC w/ auto diff MCV fL 80.0 104.0 91.3 FINAL Bl[facility]ne [facility]ales [facility], [address] [place] [address] 200 [place] [id number] 0 Phone: () - 01/17 CBC w/ auto diff MCH pg 26.0 35.0 29.9 FINAL [facility], [address] 200 [place] [id number] 0 Phone: () - 01/17 CBC w/ auto diff MCHC g/dL 30.0 35.0 32.7 FINAL Blayne morales Oncology [facility], [address] 200 [place] [id number] 0 Phone: () - 01/17 CBC w/ auto diff MPV fL 9.5 13.4 9.6 FINAL Blayne morales Oncology [facility], [address] 200 [place] [id number] 0 Phone: () - 01/17 CBC w/ auto diff RDW % 11.4 16.1 13.20 FINAL Blyane morales Oncology [facility], [address] 200 [place] [id number] 0 Phone: () - 01/17 CA 27-29 panel CA 27-29 UNITS/ ML 0.0 37.0 15.68 Test performed at [facility] on a [employer] 2000 Immunoass ay Analyzer that uses an immunoenz ymometric sandwich assay for analysis. Patient testing should not be performed using multiple methodsuzan lambert due to analytica l variation seen between test methodsuzan lambert. FINAL Blayne morales Oncology [facility], [address] [facility] [address] [facility] [id number] 0 Phone: () - 10/06 [facility] [place] lab See core rescuer d 01/09 CBC w/ auto diff WBC K/uL 3.0 8.9 6.6 FINAL Nataliia morales [facility] - [place], [address] [place] [address] [address] [place] [id number] 0 Phone: () - 01/09 CBC w/ auto diff HGB g/dL 11.3 15.2 12.9 FINAL Nataliia morales [facility] - [place], [address] [place] [address] [address] [place] [id number] 0 Phone: () - 01/09 CBC w/ auto diff PLT K/uL 113.0 364.0 251 FINAL Nataliia morales [facility] - [place], [address] [place] [address] [address] [place] [id number] 0 Phone: () - 01/09 CBC w/ auto diff Irwin # (ANC) K/uL 1.6 6.6 4.9 FINAL Nataliia morales [facility] - [place], [address] [place] [address] [address] [place] [id number] 0 Phone: () - 01/09 CBC w/ auto diff Irwin % % 43.0 74.0 73.2 FINAL Nataliia morales [facility] - [place], [address] [place] [address] [address] [place] [id number] 0 Phone: () - 01/09 CBC w/ auto diff IG % % 0.0 0.5 0.2 FINAL Nataliia morales [facility] - [place], [address] [place] [address] [address] [place] [id number] 0 Phone: () - 01/09 CBC w/ auto diff IG # K/uL 0.0 0.03 0.01 FINAL Nataliia Hawleyot andrew [facility] - [place], [address] [place] [address] [address] [place] [id number] 0 Phone: () - 01/09 CBC w/ auto diff LY % % 14.0 41.0 15.1 FINAL Nataliia Hawleyot andrew [facility] - [place], [address] [place] [address] [address] [place] [id number] 0 Phone: () - 01/09 CBC w/ auto diff MO % % 6.0 15.0 8.8 FINAL Nataliia morales [facility] - [place], [address] [place] [address] [address] [place] [id number] 0 Phone: () - 01/09 CBC w/ auto diff EO % % 0.0 7.0 2.1 FINAL Nataliia morales [facility] - [place], [address] [place] [id number] 0 Phone: () - 01/09 CBC w/ auto diff BA % % 0.0 2.0 0.6 FINAL Nataliia morales [facility] - [place], [address] [place] [id number] 0 Phone: () - 01/09 CBC w/ auto diff LY # K/uL 0.4 3.6 1.0 FINAL Nataliia morales [facility] - [place], [address] [place] [id number] 0 Phone: () - 01/09 CBC w/ auto diff MO # K/uL 0.2 1.3 0.6 FINAL Nataliia morales [facility] - [place], [address] 200 [place] [id number] 0 Phone: () - 01/09 CBC w/ auto diff EO # K/uL 0.0 0.6 0.1 FINAL Nataliia morales [facility] - [place], [address] 200 [place] [id number] 0 Phone: () - 01/09 CBC w/ auto diff BA # K/uL 0.0 0.2 0.0 FINAL Nataliia morales [facility] - [place], [address] [place] [id number] 0 Phone: () - 01/09 CBC w/ auto diff NRBC % #/100W BC 0.0 0.2 0.0 FINAL Nataliia morales [facility] - [place], [address] [place] [id number] 0 Phone: () - 01/09 CBC w/ auto diff RBC M/uL 3.9 5.1 4.31 FINAL Nataliia morales [facility] - [place], [address] [facility] [place] [id number] 0 Phone: () - 01/09 CBC w/ auto diff HCT % 35.0 48.0 39.3 FINAL Nataliia morales [facility] - [place], [address] 200 [facility] [place] [id number] 0 Phone: () - 01/09 CBC w/ auto diff MCV fL 80.0 104.0 91.2 FINAL Nataliia morales [facility] - [place], [address] 200 [facility] [place] [id number] 0 Phone: () - 01/09 CBC w/ auto diff MCH pg 26.0 35.0 29.9 FINAL Nataliia morales [facility] - [place], [address] 200 [facility] [place] [id number] 0 Phone: () - 01/09 CBC w/ auto diff MCHC g/dL 30.0 35.0 32.8 FINAL Nataliia morales [facility] - [place], [address] 200 [facility] [place] [id number] 0 Phone: () - 01/09 CBC w/ auto diff MPV fL 9.5 13.4 9.9 FINAL Nataliia morales [facility] - [place], [address] 200 [facility] [place] [id number] 0 Phone: () - 01/09 CBC w/ auto diff RDW % 11.4 16.1 13.10 FINAL Nataliia morales [facility] - [place] [facility], [address] 200 [facility] [place] [id number] 0 Phone: () - 01/09 CMP Album in g/dL 3.2 5.2 4.4 FINAL Nataliia morales On[facility] [address] [id number] 0 Phone: () - 01/09 CMP Alkal ine phosp hatas e U/L 46.0 116.0 71 FINAL Nataliia morales On[facility] [address] [place] [id number] 0 Phone: () - 01/09 CMP ALT/S GPT U/L 7.0 40.0 23 FINAL Nataliia morales [address] [id number] 0 Phone: () - 01/09 CMP AST/S GOT U/L 13.0 40.0 32 FINAL Nataliia morales [address] [id number] 0 Phone: () - 01/09 CMP BUN mg/dL 9.0 23.0 14 FINAL Nataliia Hawley[address] [id number] 0 Phone: () - 01/09 CMP Calci um mg/dL 8.7 10.4 9.7 FINAL Nataliia Hawley[address] [id number] 0 Phone: () - 01/09 CMP Chlor tiara mmol/L 96.0 114.0 109 FINAL Nataliia Hawley[address] [id number] 0 Phone: () - 01/09 CMP CO2 mmol/L 20.0 31.0 26 FINAL Nataliia Bravo [address] [id number] 0 Phone: () - 01/09 CMP Creat inine mg/dL 0.5 1.2 0.89 FINAL Nataliia Hawley andrew [address] [id number] 0 Phone: () - 01/09 CMP GFR estim ate ml/min /1.73m ^2 66.8 GFR is calculate d using the CKD-EPI equation. FINAL Nataliia Hawley andrew [address] [id number] 0 Phone: () - 01/09 CMP Gluco se mg/dL 73.0 126.0 87 FINAL Nataliia morales [address] [id number] 0 Phone: () - 01/09 CMP Potas sium mmol/L 3.5 5.1 4.1 FINAL Nataliia Hawley[address] [id number] 0 Phone: () - 01/09 CMP Sodiu m mmol/L 136.0 145.0 143 FINAL Nataliia Hawley andrew [address] [id number] 0 Phone: () - 01/09 CMP Bilir ubin, total mg/dL 0.3 1.2 0.5 FINAL Nataliia Hawley[address] [id number] 0 Phone: () - 01/09 CMP Total prote in g/dL 5.7 8.2 7.3 FINAL Nataliia Hawley[address] [id number] 0 Phone: () - 01/09 CA 27-29 panel CA 27-29 UNITS/ ML 0.0 37.0 18.95 Test performed at [facility] on a [employer] Immunoass ay Analyzer that uses an immunoenz ymometric sandwich assay for analysis. Patient testing should not be performed using multiple methodolo gikimberly due to analytica l variation seen between test methodolo fausto. FINAL Nataliia Hawley[address] [id number] 0 Phone: () - 07/19 [facility] [place] lab See core rescuer d 08/14 [facility] lab See core rescuer d 01/22 CMP Album in g/dL 3.2 5.2 4.2 FINAL [place] [address] [id number] 0 Phone: () - 01/22 CMP Alkal ine phosp hatas e U/L 46.0 116.0 68 FINAL Blayne Valencia [place] [address] [id number] 0 Phone: () - 01/22 CMP ALT/S GPT U/L 7.0 40.0 25 FINAL Blayne Valencia [place] [address] [id number] 0 Phone: () - 01/22 CMP AST/S GOT U/L 13.0 40.0 31 [facility], [address] [facility] [address] [facility] [id number] 0 Phone: () - 01/22 CMP BUN mg/dL 9.0 23.0 18 [facility] [address] [facility] [address] [facility] [id number] 0 Phone: () - 01/22 CMP Calci um mg/dL 8.7 10.4 9.6 [facility] [address] [facility] [address] [facility] [id number] 0 Phone: () - 01/22 CMP Chlor tiara mmol/L 96.0 114.0 110 [facility] [address] [id number] 0 Phone: () - 01/22 CMP CO2 [...] the 96 hour stability window. FINAL [facility], [address] [facility] [address] [place] [address] [id number] 0 Phone: () - 01/22 CMP Creat inine mg/dL 0.5 1.2 0.76 [facility], [address] [facility] [address] [place] [address] [phone] Phone: () - 01/22 CMP GFR estim ate ml/min /1.73m ^2 85.0 GFR is calculate d using the CKD-EPI equation. [facility], [address] [facility] [address] [place] [address] [id number] 0 Phone: () - 01/22 CMP Gluco se mg/dL 73.0 126.0 95 FINAL Blayne morales [facility], [address] [facility] [id number] 0 Phone: () - 01/22 CMP Potas sium mmol/L 3.5 5.1 3.9 FINAL Blayne morales [facility], [address] [facility] [id number] 0 Phone: () - 01/22 CMP Sodiu m mmol/L 136.0 145.0 144 FINAL Blayne Helm [facility], [address] [facility] [id number] 0 Phone: () - 01/22 CMP Bilir ubin, total mg/dL 0.3 1.2 0.7 FINAL Blayne morales [facility], [address] [facility] [id number] 0 Phone: () - 01/22 CMP Total prote in g/dL 5.7 8.2 7.0 FINAL Blayne morales [facility], [address] [facility] [address] [facility] [id number] 0 Phone: () - 01/22 CBC w/ auto diff WBC K/uL 3.0 8.9 4.2 FINAL Blayne morales [facility], [address] [place] [address] 200 [facility] [place] [id number] 0 Phone: () - 01/22 CBC w/ auto diff HGB g/dL 11.3 15.2 12.4 FINAL Blayne morales [facility], [address] [place] [address] [address] [facility] [place] [id number] 0 Phone: () - 01/22 CBC w/ auto diff PLT K/uL 113.0 364.0 252 FINAL Blayne Hawley andrew [facility], [address] [place] [address] [address] [facility] [place] [id number] 0 Phone: () - 01/22 CBC w/ auto diff Irwin # (ANC) K/uL 1.6 6.6 2.1 FINAL Blayne morales On[facility], [address] [place] [address] [address] [facility] [place] [id number] 0 Phone: () - 01/22 CBC w/ auto diff Irwin % % 43.0 74.0 51.5 FINAL Blayne morales [facility] - [place], [address] [place] [address] [address] [place] [id number] 0 Phone: () - 01/22 CBC w/ auto diff IG % % 0.0 0.5 0.2 FINAL Blayne morales [facility] - [place], [address] [place] [address] [address] [place] [id number] 0 Phone: () - 01/22 CBC w/ auto diff IG # K/uL 0.0 0.03 0.01 FINAL Blayne morales [facility] - [place], [address] [place] [address] [address] [place] [id number] 0 Phone: () - 01/22 CBC w/ auto diff LY % % 14.0 41.0 29.3 FINAL Blayne morales [facility] - [place], [address] [place] [address] [address] [place] [id number] 0 Phone: () - 01/22 CBC w/ auto diff MO % % 6.0 15.0 10.8 FINAL Blayne morales [facility] - [place], [address] [place] [address] [address] [place] [id number] 0 Phone: () - 01/22 CBC w/ auto diff EO % % 0.0 7.0 7.2 High FINAL Blayne morales [facility] - [place], [address] [place] [address] [address] [place] [id number] 0 Phone: () - 01/22 CBC w/ auto diff BA % % 0.0 2.0 1.0 FINAL Blayne morales [facility] - [place], [address] [place] [address] [address] [place] [id number] 0 Phone: () - 01/22 CBC w/ auto diff LY # K/uL 0.4 3.6 1.2 FINAL Blayne morales [facility] - [place], [address] [place] [address] [address] [place] [id number] 0 Phone: () - 01/22 CBC w/ auto diff MO # K/uL 0.2 1.3 0.5 FINAL Blayne morales [facility] - [place], [address] [place] [address] [address] [place] [id number] 0 Phone: () - 01/22 CBC w/ auto diff EO # K/uL 0.0 0.6 0.3 FINAL Blayne morales [facility] - [place], [address] [place] [address] [address] [place] [id number] 0 Phone: () - 01/22 CBC w/ auto diff BA # K/uL 0.0 0.2 0.0 FINAL Blayne morales [facility] - [place], [address] [place] [address] [address] [place] [id number] 0 Phone: () - 01/22 CBC w/ auto diff NRBC % #/100W BC 0.0 0.2 0.0 FINAL Blayne morales [facility] - [place], [address] [place] [address] [address] [place] [id number] 0 Phone: () - 01/22 CBC w/ auto diff RBC M/uL 3.9 5.1 4.11 FINAL Blayne morales [facility] - [place], [address] [place] [address] [address] [place] [id number] 0 Phone: () - 01/22 CBC w/ auto diff HCT % 35.0 48.0 38.0 FINAL Blayne morales [facility] - [place], [address] [place] [address] [address] [place] [id number] 0 Phone: () - 01/22 CBC w/ auto diff MCV fL 80.0 104.0 92.5 FINAL Blayne morales [facility] - [place], [address] [place] [address] [address] [place] [id number] 0 Phone: () - 01/22 CBC w/ auto diff MCH pg 26.0 35.0 30.2 FINAL Blayne morales [facility] - [place], [address] [place] [address] [address] [place] [id number] 0 Phone: () - 01/22 CBC w/ auto diff MCHC g/dL 30.0 35.0 32.6 FINAL Blayne morales [facility] - [place], [address] [facility] [address] [facility] [id number] 0 Phone: () - 01/22 CBC w/ auto diff MPV fL 9.5 13.4 9.9 FINAL Blayne morales Oncology [facility], [address] [facility] [id number] 0 Phone: () - 01/22 CBC w/ auto diff RDW % 11.4 16.1 13.50 FINAL Blayne morales Oncology [facility], [address] [facility] [id number] 0 Phone: () - Medications Date Name [...]
--- OUTSIDE RECORDS SUMMARY | 2025-01-21 08:45 | XMS_ITS ---
Author Name Interface, [id number] lity Address [address] [facility] [address] [address] [facility] Oncology Address [address] [facility] [address] [address] Care Team Providers Care Suture Gauger Name Role Phone Blayne Valencia Unavailable Unavailable [...] and as able. ??Currently has appointment 03/20/2024 [facility] Advanced Care Planning Pain Scale on [...] T1a, pN0, M0, G3, ER Status: Negative, GA Status: Negative) Date of Dx:09/2011 Extent of [...]
--- OUTSIDE RECORDS SUMMARY | 2025-01-21 08:45 | XMS_ITS ---
Author Name Interface, [id number] lity Address [address] [facility] [address] [address] [facility] Oncology Address [address] [facility] [address] [address] Care Team Providers Care Telecommunications Switch Technician Name Role Phone Cindy Loco Unavailable Unavailable [...] 4.2 FINAL Blayne Hawley a Oncology - [place], [address] [facility] [address] [facility] [phone] Phone: () - 01/22 CMP Alkal ine phosp hatas e U/L 46.0 116.0 68 [facility]AL [facility], [address] [facility] [phone] Phone: () - 01/22 CMP ALT/S GPT U/L 7.0 40.0 25 FINAL Blayne Valencia [facility], [address] [facility] [id number] [phone] Phone: () - 01/22 CMP AST/S GOT U/L 13.0 40.0 31 [facility], [address] [facility] [phone] 0 Phone: () - 01/22 CMP BUN mg/dL 9.0 23.0 18 [facility]AL [facility], [address] [place] [address] [phone] Phone: () - 01/22 CMP Calci um mg/dL 8.7 10.4 9.6 FINAL Blayne Valencia [facility], [address] [place] [address] [id number] 0 Phone: () - 01/22 CMP Chlor tiara mmol/L 96.0 114.0 110 FINAL Blayne Valencia [facility], [address] [place] [address] [id number] [phone] Phone: () - 01/22 CMP CO2 [...] the 96 hour stability window. FINAL [facility], [address] [facility] [id number] [phone] Phone: () - 01/22 CMP Creat inine mg/dL 0.5 1.2 0.76 FINAL Blayne Valencia [facility], [address] [id number] 0 Phone: () - 01/22 CMP GFR estim ate ml/min /1.73m ^2 85.0 GFR is calculate d using the CKD-EPI equation. [facility]AL [facility], [address] [id number] 0 Phone: () - 01/22 CMP Gluco se mg/dL 73.0 126.0 95 FINAL [facility], [address] [id number] 0 Phone: () - 01/22 CMP Potas sium mmol/L 3.5 5.1 3.9 FINAL [facility], [address] [id number] 0 Phone: () - 01/22 CMP Sodiu m mmol/L 136.0 145.0 144 FINAL [facility], [address] [id number] 0 Phone: () - 01/22 CMP Bilir ubin, total mg/dL 0.3 1.2 0.7 FINAL [facility], [address] [id number] 0 Phone: () - 01/22 CMP Total prote in g/dL 5.7 8.2 7.0 FINAL [facility], [address] [id number] 0 Phone: () - 01/22 CBC w/ auto diff WBC K/uL 3.0 8.9 4.2 [facility], [address] [place] [address] [address] [facility] [id number] [phone] Phone: () - 01/22 CBC w/ auto diff HGB g/dL 11.3 15.2 12.4 FINAL Blayne Hawley [facility], [address] [facility] [id number] 0 Phone: () - 01/22 CBC w/ auto diff PLT K/uL 113.0 364.0 252 FINAL Blayne morales [facility] - [place], [address] [place] [address] [address] [place] [id number] 0 Phone: () - 01/22 CBC w/ auto diff Irwin # (ANC) K/uL 1.6 6.6 2.1 FINAL Blayne morales [facility] - [place], [address] [place] [address] [address] [place] [id number] 0 Phone: () - 01/22 CBC w/ auto diff Irwin % % 43.0 74.0 51.5 FINAL Blayne morales [facility] - [place], [address] [place] [address] [address] [place] [id number] 0 Phone: () - 01/22 CBC w/ auto diff IG % % 0.0 0.5 0.2 FINAL Blayne morales [facility] - [place], [address] [place] [address] [address] [place] [id number] 0 Phone: () - 01/22 CBC w/ auto diff IG # K/uL 0.0 0.03 0.01 FINAL Blayne morales [facility] - [place], [address] [place] [address] [address] [place] [id number] 0 Phone: () - 01/22 CBC w/ auto diff LY % % 14.0 41.0 29.3 FINAL Blayne morales [facility] - [place], [address] [place] [address] [address] [place] [id number] 0 Phone: () - 01/22 CBC w/ auto diff MO % % 6.0 15.0 10.8 FINAL Blayne morales On[facility] - [place], [address] [place] [address] [address] [place] [id number] 0 Phone: () - 01/22 CBC w/ auto diff EO % % 0.0 7.0 7.2 High FINAL Blayne morales On[facility] - [place], [address] [place] [address] [address] [place] [id number] 0 Phone: () - 01/22 CBC w/ auto diff BA % % 0.0 2.0 1.0 FINAL [place]ne [place] [facility] [place], [address] 200 [place] [id number] 0 Phone: () - 01/22 CBC w/ auto diff LY # K/uL 0.4 3.6 1.2 FINAL Blayne morales On[facility] - [place], [address] 200 [place] [id number] 0 Phone: () - 01/22 CBC w/ auto diff MO # K/uL 0.2 1.3 0.5 FINAL Blayne morales Oncology - [place], [address] [place] [id number] 0 Phone: () - 01/22 CBC w/ auto diff EO # K/uL 0.0 0.6 0.3 FINAL Blayne morales On[facility] - [place], [address] 200 [place] [id number] 0 Phone: () - 01/22 CBC w/ auto diff BA # K/uL 0.0 0.2 0.0 FINAL Blayne morales On[facility] - [place], [address] [place] [id number] 0 Phone: () - 01/22 CBC w/ auto diff NRBC % #/100W BC 0.0 0.2 0.0 FINAL Blayne morales On[facility] - [place], [address] 200 [place] [id number] 0 Phone: () - 01/22 CBC w/ auto diff RBC M/uL 3.9 5.1 4.11 FINAL Blayne morales On[facility] - [place], [address] 200 [place] [id number] 0 Phone: () - 01/22 CBC w/ auto diff HCT % 35.0 48.0 38.0 FINAL Blayne morales Oncology - [place], [address] [place] [address] 200 [place] [id number] 0 Phone: () - 01/22 CBC w/ auto diff MCV fL 80.0 104.0 92.5 FINAL Blayne morales Oncology - [place], [address] [place] [address] [address] [place] [id number] 0 Phone: () - 01/22 CBC w/ auto diff MCH pg 26.0 35.0 30.2 FINAL Blayne Hawley andrew Oncology [facility], [address] [place] [address] [address] [place] [id number] 0 Phone: () - 01/22 CBC w/ auto diff MCHC g/dL 30.0 35.0 32.6 [facility], [address] [place] [address] [address] [place] [id number] 0 Phone: () - 01/22 CBC w/ auto diff MPV fL 9.5 13.4 9.9 [facility], [address] [place] [address] [address] [place] [id number] 0 Phone: () - 01/22 CBC w/ auto diff RDW % 11.4 16.1 13.50 [facility], [address] [place] [address] 200 [facility] [place] [phone] 0 Phone: () - Medications Date Name [...]
--- OUTSIDE RECORDS SUMMARY | 2025-01-21 08:46 | XMS_ITS ---
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 Role Phone Cindy Loco Unavailable Unavailable [...] 4.2 FINAL Blayne Hawley a Oncology - [place], [address] [facility] [address] [facility] [phone] [phone] Phone: () - 01/22 CMP Alkal ine phosp hatas e U/L 46.0 116.0 68 [facility], [address] [facility] [id number] 0 Phone: () - 01/22 CMP ALT/S GPT U/L 7.0 40.0 25 FINAL Blayne Valencia [facility], [address] [facility] [id number] [phone] Phone: () - 01/22 CMP AST/S GOT U/L 13.0 40.0 31 FINAL [facility], [address] [facility] [id number] 0 Phone: () - 01/22 CMP BUN mg/dL 9.0 23.0 18 [facility], [address] [place] [address] [id number] [phone] Phone: () - 01/22 CMP Calci um mg/dL 8.7 10.4 9.6 FINAL Blayne Valencia [facility], [address] [place] [address] [id number] 0 Phone: () - 01/22 CMP Chlor tiara mmol/L 96.0 114.0 110 FINAL Blayne Valencia [facility], [address] [place] [address] [id number] 0 Phone: () - 01/22 CMP CO2 [...] the 96 hour stability window. [facility], [address] [facility] [id number] [phone] Phone: () - 01/22 CMP Creat inine mg/dL 0.5 1.2 0.76 FINAL Blayne Valencia [facility], [address] [id number] 0 Phone: () - 01/22 CMP GFR estim ate ml/min /1.73m ^2 85.0 GFR is calculate d using the CKD-EPI equation. [facility], [address] [id number] 0 Phone: () - 01/22 CMP Gluco se mg/dL 73.0 126.0 95 [facility], [address] [id number] 0 Phone: () - 01/22 CMP Potas sium mmol/L 3.5 5.1 3.9 [facility], [address] [id number] 0 Phone: () - 01/22 CMP Sodiu m mmol/L 136.0 145.0 144 [facility], [address] [id number] 0 Phone: () - 01/22 CMP Bilir ubin, total mg/dL 0.3 1.2 0.7 [facility], [address] [id number] 0 Phone: () - 01/22 CMP Total prote in g/dL 5.7 8.2 7.0 [facility], [address] [id number] 0 Phone: () - 01/22 CBC w/ auto diff WBC K/uL 3.0 8.9 4.2 [facility], [address] [place] [address] [address] [facility] [id number] 0 Phone: () - 01/22 CBC w/ auto diff HGB g/dL 11.3 15.2 12.4 FINAL Blayne Hawley andrew [facility], [address] [facility] [id number] 0 Phone: () - 01/22 CBC w/ auto diff PLT K/uL 113.0 364.0 252 FINAL Blayne morales Oncology - [place], [address] [place] [address] [address] [place] [id number] 0 Phone: () - 01/22 CBC w/ auto diff Iwrin # (ANC) K/uL 1.6 6.6 2.1 FINAL Blayne morales [facility] - [place], [address] [place] [address] [address] [place] [id number] 0 Phone: () - 01/22 CBC w/ auto diff Irwin % % 43.0 74.0 51.5 FINAL Blayne morales Oncology - [place], [address] [place] [address] [address] [place] [id number] 0 Phone: () - 01/22 CBC w/ auto diff IG % % 0.0 0.5 0.2 FINAL Blayne morales Oncology - [place], [address] [place] [address] [address] [place] [id number] 0 Phone: () - 01/22 CBC w/ auto diff IG # K/uL 0.0 0.03 0.01 FINAL Blayne morales Oncology - [place], [address] [place] [address] [address] [place] [id number] 0 Phone: () - 01/22 CBC w/ auto diff LY % % 14.0 41.0 29.3 FINAL Blayne morales Oncology - [place], [address] [place] [address] [address] [place] [id number] 0 Phone: () - 01/22 CBC w/ auto diff MO % % 6.0 15.0 10.8 FINAL Blayne morales Oncology - [place], [address] [place] [address] [address] [place] [id number] 0 Phone: () - 01/22 CBC w/ auto diff EO % % 0.0 7.0 7.2 High FINAL Blayne morales Oncology - [place], [address] [place] [address] [address] [place] [id number] 0 Phone: () - 01/22 CBC w/ auto diff BA % % 0.0 2.0 1.0 FINAL Bl[place]ne [place] [facility] [place], [address] [place] [id number] 0 Phone: () - 01/22 CBC w/ auto diff LY # K/uL 0.4 3.6 1.2 FINAL Blayne morales Oncology - [place], [address] 200 [place] [id number] 0 Phone: () - 01/22 CBC w/ auto diff MO # K/uL 0.2 1.3 0.5 FINAL Blayne morales Oncology - [place], [address] [place] [id number] 0 Phone: () - 01/22 CBC w/ auto diff EO # K/uL 0.0 0.6 0.3 FINAL Blayne morales Oncology - [place], [address] [place] [id number] 0 Phone: () - 01/22 CBC w/ auto diff BA # K/uL 0.0 0.2 0.0 FINAL Blayne morales Oncology - [place], [address] [place] [id number] 0 Phone: () - 01/22 CBC w/ auto diff NRBC % #/100W BC 0.0 0.2 0.0 FINAL Blayne morales Oncology - [place], [address] [place] [id number] 0 Phone: () - 01/22 CBC w/ auto diff RBC M/uL 3.9 5.1 4.11 FINAL Blayne morales Oncology - [place], [address] [place] [id number] 0 Phone: () - 01/22 CBC w/ auto diff HCT % 35.0 48.0 38.0 FINAL Blayne morales Oncology - [place], [address] [place] [address] 200 [place] [id number] 0 Phone: () - 01/22 CBC w/ auto diff MCV fL 80.0 104.0 92.5 FINAL Blayne morales Oncology - [place], [address] [place] [address] [address] [place] [id number] 0 Phone: () - 01/22 CBC w/ auto diff MCH pg 26.0 35.0 30.2 FINAL Blayne Hawley andrew Oncology [facility], [address] [place] [address] [address] [place] [id number] 0 Phone: () - 01/22 CBC w/ auto diff MCHC g/dL 30.0 35.0 32.6 FINAL [facility], [address] [place] [address] [address] [place] [id number] 0 Phone: () - 01/22 CBC w/ auto diff MPV fL 9.5 13.4 9.9 [facility], [address] [place] [address] [address] [place] [id number] 0 Phone: () - 01/22 CBC w/ auto diff RDW % 11.4 16.1 13.50 [facility], [address] [place] [address] 200 [facility] [place] [id number] 0 Phone: () - Medications Date Name [...]
[2025-01-21 08:49] LABS: Basophils Absolute Auto 0.02 K/uL (0.00-0.30); Basophils Percent Auto 0.3 % (0.0-3.0); Eosinophils Percent Auto 2.5 % (0.0-7.0); Hematocrit 39.4 % (33.0-51.0); Hemoglobin* 12.7 gm/dL (12.0-16.0); Immature Granulocytes Abs Auto 0.01 K/uL (0.00-0.30); Immature Granulocytes Pct Auto 0.1 %; Lymphocytes Percent Auto 12.9 % (20-44); Mean Corpuscular HGB Conc 32 gm/dL (32-36); Mean Corpuscular Hemoglobin 30 pg (26-34); Mean Corpuscular Volume 92 fL (80-100); Monocytes Percent Auto 5.7 % (0.0-11.0); Neutrophils Percent Auto 78.5 % (42.0-72.0); Platelet Count* 278 K/uL (140-440); RDW Coefficient of Variation % 12.8 % (11.5-15.5); Red Blood Count 4.28 m/uL (4.00-5.20); Slide Review Reflex No; White Blood Count* 7.93 K/uL (4.50-11.00)
[2025-01-21 08:56] LABS: Troponin, Point-of-Care* 0.01 ng/ml (0.01-0.04)
[2025-01-21 09:04] LABS: Albumin* 4.2 g/dL (3.3-5.0); Chloride* 106 mmol/L (96-114); Potassium* 3.7 mmol/L (3.6-5.1); Sodium* 138 mmol/L (135-149)
--- NOTE | 2025-01-21 09:04 | ED.GENADULT ---
HPI - General Adult General Chief complaint: Nausea/Vomiting Stated complaint: hip and back pain, vomiting Time Seen by Provider: 01/21/25 08:07 Source: patient and family Mode of arrival: ambulatory Limitations: no limitations History of Present Illness HPI narrative: 69-year-old female presenting today with multiple concerns. Patient states that this morning she felt dizzy and lightheaded. She describes the sensation of the room moving around her. She states that it gets worse if she moves a certain way. When she closes her eyes it does get better. She states that when the sensation comes and makes her very nauseated she has vomited multiple times this morning. She denies headache or neck pain. She states that she has difficulty walking because she has had several months of left hip pain. The pain gets worse with movement and with walking. She states in the last week this pain has gotten significantly worse. She has chronic low back pain and this pain comes and goes. She denies fevers or chills. She denies any trauma, tripping or falling. She denies foot drop or having difficult time picking up her feet when she is walking. She denies any saddle anesthesia. No difficulty controlling her bowels or bladder. She denies any skin rashes. Lastly, patient has a healing ulcer on the right foot that she would like to have looked at. She does see a machine crater for this. Patient lives alone. Related Data Home Medications ?Medication ?Instructions ?Recorded ?Confirmed fluticasone propionate 50 2 spray intranasal QDAY PRN 01/03/24 11/10/24 mcg/actuation nasal spray,suspension ketoconazole 2 % topical cream applic topical BID 06/17/24 11/10/24 Previous Rx's ?Medication ?Instructions ?Recorded triamcinolone acetonide 0.025 % 1 applic topical BID PRN rash #454 02/20/24 topical cream grams clobetasol 0.05 % topical cream 1 applic topical BID #30 grams 11/03/24 meloxicam 7.5 mg tablet 7.5 mg PO QDAY #90 tabs 11/03/24 pramipexole 0.5 mg tablet 0.5 mg PO QHS #90 tabs 11/03/24 rosuvastatin 5 mg tablet 5 mg PO QDAY #90 tabs 11/03/24 gabapentin 100 mg capsule 100 mg PO BID #180 caps 11/10/24 peg 3350-electrolytes 236 240 ml PO ONCE #4,000 mL 11/19/24 gram-22.74 gram-6.74 gram-5.86 gram solution (Golytely) meclizine 25 mg tablet 25 mg PO BID PRN #10 tabs 01/21/25 Allergies Allergy/AdvReac Type Severity Reaction Status Date / Time leflunomide (From Arava) Allergy Severe heart Verified 11/10/24 08:48 arrhythemia Penicillins Allergy Mild rash/hives Verified 11/10/24 08:48 oxycodone AdvReac Severe Nausea Verified 11/10/24 08:48 Review of Systems Status of ROS: Reports: 10 or more systems reviewed and unremarkable except as noted in History and below PFSH [facility] Medical History Neuropathy ?G62.9 - Polyneuropathy, unspecified (ICD-10) Encounter for preventive care ?Z00.00 - Encounter for general adult medical examination without abnormal findings (ICD-10) Shoulder pain ?M25.519 - Pain in unspecified shoulder (ICD-10) Vargas cyst ?M71.20 - Synovial cyst of popliteal space [Vargas], unspecified knee (ICD-10) Labial fusion ?Q52.5 - Fusion of labia (ICD-10) Pain in both feet ?M79.671 - Pain in right foot (ICD-10) ?M79.672 - Pain in left foot (ICD-10) Urge incontinence ?N39.41 - Urge incontinence (ICD-10) Paresthesia ?R20.2 - Paresthesia of skin (ICD-10) Cellulitis, face ?L03.211 - Cellulitis of face (ICD-10) Fracture of scapula ?S42.109A - Fracture of unspecified part of scapula, unspecified shoulder, initial encounter for closed fracture (ICD-10) Vitamin D deficiency ?E55.9 - Vitamin D deficiency, unspecified (ICD-10) History of malignant neoplasm of breast ?Z85.3 - Personal history of malignant neoplasm of breast (ICD-10) Gastroesophageal reflux disease ?K21.9 - Gastro-esophageal reflux disease without esophagitis (ICD-10) Arthritis ?M19.90 - Unspecified osteoarthritis, unspecified site (ICD-10) Family History Father Heart disease Brother Heart disease Sister Artificial pacemaker Mother Vaginal cancer Other Gout Social History Narrative: does not drink alcohol does not use illicit drugs nonsmoker , 2022 What is your current living situation?: I presently have a place to live Problems where you live: unable to answer In the past 12 months, utilities in danger of being shut off: no In past 12 months, lack of transportation kept you from medical appts, meetings, work, or getting things needed for daily living: no In the past 12 mos, have been you worried that your food would run out before you had money to buy more?: never true In the past 12 mos, the food you bought just didn't last and you didn't have money to buy more?: never true Smoking Status: Never smoker How often do you have a drink containing alcohol: never AUDIT-C Alcohol total score: 0 Non-prescribed substance use: denies use How often does anyone, including family, friends and others, physically hurt you: never How often does anyone, including family, friends and others, insult or talk down to you: never How often does anyone, including family, friends and others, threaten you with harm: never How often does anyone, including family, friends and others, scream or curse at you: rarely Health Related Social Needs: Other personal risk factors, not elsewhere classified (Z91.89) Exam Narrative: Exam Narrative: Well-nourished well-developed patient in no acute distress. Alert and oriented. Answers questions appropriately but is often slow to answer questions. Mood and affect are appropriate. Thoughts are goal oriented and rational. No tangential or magical thinking noted. Patient speaks in full sentences without needing to catch her breath. HEENT: Normocephalic atraumatic. Pupils are equally round reactive to light. Extraocular muscles are intact. Conjunctivae are moist without any icterus noted. Moist mucous membranes. Posterior pharynx is normal. Neck is soft without any lymphadenopathy or thyromegaly. No masses are appreciated. Cardiovascular: Heart is regular rate and rhythm S1 and S2 are present without any murmurs. Lungs: Clear to auscultation bilaterally no wheezes rhonchi or rales are appreciated. Patient takes deep breaths without any discomfort. Abdomen: Soft and nontender nondistended with normal bowel sounds. No guarding or rebound. No masses or organomegaly appreciated. Extremities: Bilateral lower extremities are without edema. Normal DP and PT pulses. Patient has some tenderness with movement of the left hip. Pain with external internal rotation. Skin: Well perfused without any obvious rashes. Back: Normal appearance. No tenderness at thoracic or lumbar spine. Strength is 5/5 of the upper and lower extremities. Reflexes are 2+ and symmetric at the knees. Romberg sign is negative. Cranial nerves 3-12 are normal. Ewomzt-rx-paad is normal. Hyau-ly-ausk is normal. Patient has a horizontal right beating nystagmus, no vertical nystagmus. Her gait is labored secondary to hip pain. Hallpike elicits vertigo. Normal HINTS exam Const: Vital Signs, click to edit/add: Vital Signs - 24 hr 01/21/25 07:56 01/21/25 08:52 01/21/25 09:46 Temperature 97.7 F Pulse Rate 61 Pulse Rate [Pulse Oximeter] 66 Respiratory Rate 18 12 Blood Pressure 123/58 L Blood Pressure [Ri ght Upper Arm] 186/95 H Pulse Oximetry 100 98 95 Oxygen Delivery Me thod Room Air 01/21/25 10:01 01/21/25 10:31 01/21/25 11:00 Temperature Pulse Rate 68 66 50 L Pulse Rate [Pulse Oximeter] Respiratory Rate 13 16 12 Blood Pressure 138/72 133/57 L Blood Pressure [Ri ght Upper Arm] Pulse Oximetry 93 95 95 Oxygen Delivery Me thod Course Course ED Course: IV is established patient given a L of normal saline, IV Zofran. X-ray hip is unremarkable aside from some evidence of arthritis. Blood work is unremarkable. UA is normal. Patient felt better after treatment. Resting comfortably in bed. Differential diagnosis includes benign paroxysmal positional vertigo, labyrinthitis, vestibular neuritis or migraine headache, viral syndrome. Given the positional nature of her symptoms I do think it is likely benign paroxysmal positional vertigo. I do not think that her symptoms are consistent with a CVA given the attic nature and resolution with rest. Vital Signs Vital signs: Initial Vital Signs Temperature 97.7 F 01/21/25 07:56 Temperature Source Temporal Artery Scan 01/21/25 07:56 Pulse Rate 66 01/21/25 07:56 Respiratory Rate 18 01/21/25 07:56 Blood Pressure 186/95 H 01/21/25 07:56 Blood Pressure Mean 125 H 01/21/25 07:56 Pulse Oximetry 100 01/21/25 07:56 Oxygen Delivery Method Room Air 01/21/25 07:56 Vital Signs Temperature 97.7 F 01/21/25 07:56 Pulse Rate 66 01/21/25 07:56 Respiratory Rate 18 01/21/25 07:56 Blood Pressure 186/95 H 01/21/25 07:56 Pulse Oximetry 100 01/21/25 07:56 Oxygen Delivery Method Room Air 01/21/25 07:56 Temperature 97.7 F 01/21/25 07:56 Pulse Rate 50 L 01/21/25 11:00 Respiratory Rate 12 01/21/25 11:00 Blood Pressure 133/57 L 01/21/25 10:31 Pulse Oximetry 95 01/21/25 11:00 Oxygen Delivery Method Room Air 01/21/25 07:56 Medications Administered Medications: Discontinued Medications Generic Name Dose Route Start Last Admin Trade Name Freq PRN Reason Stop Dose Admin Sodium Chloride 1,000 mls @ 1,000 mls/hr 01/21/25 08:30 01/21/25 09:46 0.9 % Sodium Chloride 1000 Ml IV 01/21/25 09:29 Infused .Q1H EREN Infusion Ondansetron HCl 4 mg 01/21/25 08:25 01/21/25 08:42 Ondansetron 2 Mg/Ml Inj IVP 01/21/25 08:26 4 mg ONCE ONE Administration Medical Decision Making [facility] Narrative Medical decision making narrative: 69-year-old female with probable benign paroxysmal positional vertigo. Feeling better after treatment. We discussed moving slowly, will send her home with meclizine. Follow up with primary care Lab Data Lab results reviewed: Yes I reviewed the patient's lab results Labs: Lab Results 01/21/25 01/21/25 Range/Units 08:10 10:45 WBC 7.93 (4.50-11.00) K/uL RBC 4.28 (4.00-5.20) m/uL Hgb 12.7 (12.0-16.0) gm/dL Hct 39.4 (33.0-51.0) % MCV 92 (80-100) fL MCH 30 (26-34) pg MCHC 32 (32-36) gm/dL RDW Coeff of Heath 12.8 (11.5-15.5) % Plt Count 278 (140-440) K/uL Neut % (Auto) 78.5 H (42.0-72.0) % Lymph % (Auto) 12.9 L (20-44) % Rooks % (Auto) 5.7 (0.0-11.0) % Eos % (Auto) 2.5 (0.0-7.0) % Baso % (Auto) 0.3 (0.0-3.0) % Neut # (Auto) 6.20 (1.7-7.0) K/uL Lymph # (Auto) 1.00 (0.90-2.90) K/uL Rooks # (Auto) 0.50 (0.00-0.90) K/UL Eos # (Auto) 0.20 (0.00-0.50) K/uL Baso # (Auto) 0.02 (0.00-0.30) K/uL Abs Immat Gran (auto) 0.01 (0.00-0.30) K/uL Imm/Tot Granulo (auto) 0.1 % Sodium 138 (135-149) mmol/L Potassium 3.7 (3.6-5.1) mmol/L Chloride 106 (96-114) mmol/L Carbon Dioxide 26 (20-32) mmol/L Anion Gap 6 L (7-15) mEq/L BUN 23 (7-30) mg/dL Creatinine 0.6 (0.5-1.5) mg/dL Estimated Creat Clear 46.43 Estimated GFR 96 ml/min Glucose 118 H (60-115) mg/dL Calcium 9.5 (8.4-10.6) mg/dL Magnesium 2.1 (1.5-2.6) mg/dL Total Bilirubin 0.7 (0.1-1.5) mg/dL Direct Bilirubin 0.1 (0.0-0.5) mg/dL AST 34 (12-35) U/L ALT 28 (4-35) U/L Alkaline Phosphatase 62 (40-150) U/L Troponin I < 0.01 (0.01-0.04) ng/mL C-Reactive Protein < 0.5 L (0.5-1.0) mg/dL Total Protein 7.4 (6.0-8.3) g/dL Albumin 4.2 (3.3-5.0) g/dL Urine Color Yellow (Yellow) Urine Appearance Clear (Clear) Urine pH 7.0 (5.0-8.5) Ur Specific Jones 1.015 (1.000-1.030) Urine Protein Negative (Negative) Urine Glucose (UA) Negative (Negative) Urine Ketones Negative (Negative) Urine Blood Negative (Negative) Urine Nitrite Negative (Negative) Urine Bilirubin Negative (Negative) Urine Urobilinogen 0.2 (0.2-1.0) Ur Leukocyte Esterase Negative (Negative) Urine RBC 0-2 (0-2) Urine WBC 0-2 (0-5) Ur Squamous Epith Cells Moderate A (None-Few) Urine Bacteria None (None) POC Troponin I 0.01 (0.01-0.04) ng/ml Imaging Data X-ray hip: Attestation: I have reviewed the pertinent imaging results. Radiologist's impression: INDICATION: Pain TECHNIQUE: Single view pelvis with AP and frogleg views of the left hip. COMPARISONS: None available. FINDINGS: Femoral heads are well-seated in the acetabula. There is no displaced fracture, dislocation or acute osseous abnormality. Mild axial loss of joint space and marginal osteophyte formation. The soft tissues are unremarkable. IMPRESSION: Mild degenerative changes of the bilateral hips. No acute osseous abnormality. ECG Data Attestation: I personally reviewed and interpreted this ECG as follows: Interpretation: Normal sinus rhythm, pulse 70, in QRS, NJ and QT intervals. Discharge Plan Discharge Clinical Impression: Benign paroxysmal positional vertigo Patient Disposition: Home, Self-Care Instructions: Benign Paroxysmal Positional Vertigo (ED) Additional Instructions: Can also try Maria Esther maneuver at home. Handout provided. Prescriptions: New meclizine 25 mg tablet 25 mg PO BID PRNQty: 10 0RF No Action rosuvastatin 5 mg tablet 5 mg PO QDAY Qty: 90 3RF pramipexole 0.5 mg tablet 0.5 mg PO QHS Qty: 90 3RF meloxicam 7.5 mg tablet 7.5 mg PO QDAY Qty: 90 3RF clobetasol 0.05 % cream 1 applic topical BID Qty: 30 0RF fluticasone propionate 50 mcg/actuation spray,suspension 2 spray intranasal QDAY PRN ketoconazole 2 % cream topical BID gabapentin 100 mg capsule 100 mg PO BID Qty: 180 0RF triamcinolone acetonide 0.025 % cream 1 applic topical BID PRN (Reason: rash) Qty: 454 1RF Rx Instructions: do not fill 0.1% triamcinolone peg 3350-electrolytes [Golytely] 236-22.74-6.74 -5.86 gram recon soln 240 ml PO ONCE Qty: 4000 0RF Rx Instructions: 4pm day prior to procedure. Drink 8oz glass every 15 minutes until 1/2 of solution is gone. 6 hours prior to procedure drink 8 oz glass every 15 minutes until remaining solution gone. Follow Up/Referrals: Nicol Lugo MD [Primary Care Provider, Family Practice] [facility] Inst[facility]
[2025-01-21 09:06] LABS: Blood Urea Nitrogen* 23 mg/dL (7-30); Creatinine* 0.6 mg/dL (0.5-1.5); Est. Creatinine Clearance* 46.43; Estimated Glomerular Filt Rate 96 ml/min
[2025-01-21 09:07] LABS: Alanine Aminotransferase* 28 U/L (4-35); Alkaline Phosphatase* 62 U/L (40-150); Anion Gap 6 mEq/L (7-15); Aspartate Amino Transferase* 34 U/L (12-35); Bilirubin Direct* 0.1 mg/dL (0.0-0.5); Bilirubin Total* 0.7 mg/dL (0.1-1.5); Calcium* 9.5 mg/dL (8.4-10.6); Carbon Dioxide* 26 mmol/L (20-32); Glucose* 118 mg/dL (60-115); Magnesium* 2.1 mg/dL (1.5-2.6); Total Protein* 7.4 g/dL (6.0-8.3)
[2025-01-21 09:13] LABS: C Reactive Protein* < 0.5 mg/dL (0.5-1.0)
[2025-01-21 09:19] LABS: Troponin I* < 0.01 ng/mL (0.01-0.04)
[2025-01-21 11:12] LABS: Appearance Urine Clear (Clear); Bilirubin Urine Negative (Negative); Blood Urine Negative (Negative); Color Urine Yellow (Yellow); Glucose Urine Negative (Negative); Ketones Urine Negative (Negative); Leukocyte Esterase Urine Negative (Negative); Nitrite Urine Negative (Negative); Protein Urine Negative (Negative); Specific Gravity Urine 1.015 (1.000-1.030); Urobilinogen Urine 0.2 (0.2-1.0)
[2025-01-21 11:15] LABS: RBC Urine 0-2 (0-2); Squamous Epithelial Cell Urine Moderate (None-Few); WBC Urine 0-2 (0-5)
== END 2025-01-21 11:48 | disposition home or self-care (01) ==
PROVIDERS: Emergency Provider Family Medicine; PCP Emergency Medicine
DX: H81.11 Benign paroxysmal vertigo, right ear (principal); R11.0 Nausea; M25.552 Pain in left hip; M54.50 Low back pain, unspecified; G89.29 Other chronic pain
CPT/HCPCS: 36415; 73502; 80048; 80076; 81001; 83735; 84484; 85025; 86140; 87086; 93005; 94761; 96361; 96374; 99284; 99285; J2405; J7030

== ENCOUNTER 2025-05-06 08:00 | Outpatient (RCR) | payer MEDICARE, BC, SELFPAY ==
--- NOTE | 2025-03-08 17:26 | PT.OPE ---
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 reports chronic pain in B hips and it radiates into the lateral and posterior knee and the left is much worse than the right. The past couple weeks it has been really hard to get comfortable when I go to bed. Pain is also worse with sitting and particularly with driving more than 10 minutes. The pain is constantly aching and intermittently sharp. I've had plantar fasciitis bilaterally and I've seen the manager stone and that seems to be improving but he has me seeing a neurologist for neuropathy at the end of this month. Pt . will move around and walk and distract myself with being busy to alleviate the pain. Sometimes I get a lot of pressure in bilateral groin. 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 Precautions Weight Bearing Full Weight Bearing Status Therapy Limitations/ Not Limited Systems Review Objective Range of Motion AROM Lumbar flexion 75%, extension 5%, B LF 75% with pull contralaterally, B rotation 60% PROM - B SKC and DKC WNL; hip Strength Knees - quads and HS 5/5 Hips - B hip flexor 5-/5 with tension in anterior hip, L hip extension 3-/5, R hip extension 4/5, L hip abduction 3-/5, R hip abduction 3/5 Palpation R glut med tender, L glut med very tender, L lumbar paraspinals tight, B ITB tender R>L Balance & Gait B SLS less than a second B Posture Flexed trunk, increased kyphosis Sensation/Reflexes B SLR negative with HS tightness Other/Pertinent Special + Quinten B, Fadir on R causes LB and L posterior Objective knee tension Assessment Assessment/ Pt. 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 The stenosis is altering her trunk position causing an imbalance in the long leg muscles leading to compensatory inhibition of glut meds and overutilization of her TFL and hip flexors. Additionally she has significant left gluteal weakness and moderate right gluteal weakness which are contributing to her pain. Her left leg pain appears to be referred from this gluteal weakness/tendinosis. Treatment will consist of manual therapy, therex, NM re -ed and modalities prn with the goal of decreasing her pain enough to allow a generous amount of strengthening while working on the mobility of her lumbar spine to facilitate decreased tension on her hips. Primary Functional prolonged sitting Limitations Plan of Care Rehabilitation Good Potential Physical Therapy SHORT TERM GOALS: (4 weeks) Goals 1. Pt. consistently sleeping with pillows between her knees. 2. Pt. to demonstrate 1/2 grade increase in gluteal strength. 3. Pt. able to drive for 10 minutes with pain less than 2/10. ANTHROPOLOGY PROFESSOR GOALS: (8 weeks) 1. Pt. to demonstrate glut strength of 4/10 or greater to allow improved hip and lumbar support. 2. Pt. able to drive for 20+ minutes with pain less than 2/10. 3. Pt. able to sit in a chair for an hour without pain greater than 2/10. Coordination/ Referral Source Communication With Treatment Plan/ Electrical Stimulation,Joint Mobilization,Manual Direct Interventions Therapy,Neuromuscular Re-ed,Therapeutic Exercises Frequency/Duration 2x/week 8 weeks Patient Will Be Completion of LTG(s),Skills Plateau,Independent w/HEP, Discharged From Independently Progressing Therapy Evaluation Billing Untimed Code 40 Treatment Minutes Complexity Moderate Certification Information Initial 03/08/25 Certification Date Ending Certification 06/06/25 Date Provider Signature Yes Required Provider Signature POC & Medical Necessity Shows Agreement With Physician NPI Number Write NPI# Here Physician Comment/ : Change Physician Signature Please Sign/Date Here & Date Requested
== END 2025-06-30 13:06 | disposition home or self-care (01) ==
PROVIDERS: Visit Provider Emergency Medicine
DX: M53.3 Sacrococcygeal disorders, not elsewhere classified (principal); Z51.89 Encounter for other specified aftercare
CPT/HCPCS: 97012; 97032; 97110; 97140; 97162

== ENCOUNTER 2025-06-08 06:24 | Outpatient (CLI) | payer MEDICARE, BC, SELFPAY ==
--- NOTE | 2025-06-08 07:49 | P.ANES_ITS ---
Anesthesia Charges Start Date/Time Anesthesia Start Date: 06/08/25 Anesthesia Start Time: 07:19 Stop Date/Time Anesthesia Stop Date: 06/08/25 Anesthesia Stop Time: 07:47 Coding CPT Codes CPT Codes: JAYDEN LWR INTST NDSC NOS - [id number] ([id number]) P2 - PATIENT W/MILD SYST DISEASE, QK - BACK TENDER INSULATION BOARD 2-4 CNCRNT ANES PROC, QX - PHYSICIAN AIDE SVC W/ MD MED DIRECTION
--- NOTE | 2025-06-08 07:49 | W.ANESCHARGE ---
Anesthesia Charges Start Date/Time Anesthesia Start Date: 06/08/25 Anesthesia Start Time: 07:19 Stop Date/Time Anesthesia Stop Date: 06/08/25 Anesthesia Stop Time: 07:47 Coding CPT Codes CPT Codes: JAYDEN LWR INTST NDSC NOS - [id number] ([id number]) P2 - PATIENT W/MILD SYST DISEASE, QK - CUTTING AND SPLICING SUPERVISOR 2-4 CNCRNT ANES PROC, QX - OFFICE RENTAL CLERK SVC W/ MD MED DIRECTION
--- NOTE | 2025-06-08 10:49 | P.ANES_ITS ---
Anesthesia Charges Start Date/Time Anesthesia Start Date: 06/08/25 Anesthesia Start Time: 07:19 Stop Date/Time Anesthesia Stop Date: 06/08/25 Anesthesia Stop Time: 07:47 Summary Extremes of Age - Over 70 or under 1: MDA Coding CPT Codes CPT Codes: ANES LWR INTST NDSC NOS - 26572 ([id number]) P2 - PATIENT W/MILD SYST DISEASE, QK - ASSOCIATE SALES 2-4 CNCRNT ANES PROC, QX - LASER ENGRAVER SVC W/ MD MED DIRECTION Additional Codes: Summary - Extremes of Age - Over 70 or under 1: MDA ([id number])
--- NOTE | 2025-06-08 10:49 | W.ANESCHARGE ---
Anesthesia Charges Start Date/Time Anesthesia Start Date: 06/08/25 Anesthesia Start Time: 07:19 Stop Date/Time Anesthesia Stop Date: 06/08/25 Anesthesia Stop Time: 07:47 Summary Extremes of Age - Over 70 or under 1: MDA Coding CPT Codes CPT Codes: ANES LWR INTST NDSC NOS - 74214 ([id number]) P2 - PATIENT W/MILD SYST DISEASE, QK - ATTENDANT CAMPGROUND 2-4 CNCRNT ANES PROC, QX - MATERIALS ANALYST SVC W/ MD MED DIRECTION Additional Codes: Summary - Extremes of Age - Over 70 or under 1: MDA ([id number])
== END 2025-06-08 06:25 | disposition home or self-care (01) ==
LOC: OP CLINIC 06:25
PROVIDERS: Visit Provider Internal Medicine
DX: D12.5 Benign neoplasm of sigmoid colon (principal); Z86.0100 Personal history of colon polyps, unspecified
CPT/HCPCS: 00811; 45380; 88305; 99100; J2704

== ENCOUNTER 2025-07-22 14:37 | Outpatient (CLI) | payer MEDICARE, BC, SELFPAY | END 2025-07-22 14:38 | disposition home or self-care (01) | LOC: NFLDREF 07-26 15:30 | PROVIDERS: PCP Physician Assistant Medical; Referring Provider Physician Assistant Medical; Visit Provider Family Medicine | DX: R39.9 Unspecified symptoms and signs involving the genitourinary system (principal) | CPT/HCPCS: 87086 ==

== ENCOUNTER 2025-07-22 15:31 | Outpatient (CLI) | payer MEDICARE, BC, SELFPAY ==
--- NOTE | 2025-07-22 16:00 | CRLHL7_ITS ---
For Patients: As a result of the Cures Act, medical imaging exams and procedure reports are released immediately into your electronic medical record. You may view this report before your referring provider. If you have questions, please contact your health care provider. INDICATION: Leg pain and swelling TECHNIQUE: Ultrasound venous duplex lower right extremity. Compression venous exam was performed using mon-scale, color Doppler, and spectral Doppler imaging. COMPARISON: None. FINDINGS: Sonographic imaging demonstrates the right common femoral, deep femoral, superficial femoral, popliteal, posterior tibial and greater saphenous and the contralateral left common femoral veins to be fully compressible with normal color Doppler blood flow. Two complex fluid collections are present to the popliteal fossa measuring 7.9 x 5.3 x 2.4 and 4.7 x 2.1 x 2.0 centimeters consistent with popliteal cysts and/or hematomas IMPRESSION: 1. No right lower extremity DVT. 2. Two complex fluid collections are present to the popliteal fossa measuring 7.9 x 5.3 x 2.4 and 4.7 x 2.1 x 2.0 centimeters consistent with popliteal cysts and/or hematomas Dictated by Azael Ruffin MD @ 07/22/2025 4:23:13 PM (Electronically Signed)
== END 2025-07-22 15:32 | disposition home or self-care (01) ==
LOC: US 15:32
PROVIDERS: PCP Physician Assistant Medical; Visit Provider Family Medicine
DX: Z03.89 Encounter for observation for other suspected diseases and conditions ruled out (principal); R93.6 Abnormal findings on diagnostic imaging of limbs; R39.9 Unspecified symptoms and signs involving the genitourinary system
CPT/HCPCS: 87086; 93971